=== PATIENT | female | born 1930 | race Caucasian/White ===

== ENCOUNTER 2019-01-23 16:06 | Emergency (ER) | payer MEDICARE ==
--- NOTE | 2019-01-23 16:12 | UC ---
Respiratory Complaint HPI - HPI Summary HPI Summary: 88yo resident of [facility], with one week of respiratory symptoms. Seen for a routine visit by on 01/19 and was given cephalexin for suspected pneumonia (Initial rx was for azithromycin, not given due to risk of med interactions. First dose given evening of 01/21.). Blood tinged sputum noted 3 days ago, daughter describes as dark in color, not bright red, mixed with spurum. No fever or observed shortness of breath. Has persistent right ear pain. History of atrial fibrillation and is on Xarelto for this. Normal appetite and activity have persisted aside from the disruption caused by coughing. her daughter is certain that bloody mucous is being expectorated rather than nasal in origin. 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 Onset/Duration: Gradual Onset, Lasting Days Timing: Intermittent Episodes Severity Initially: Mild Severity Currently: Moderate Character: Cough: Productive Aggravating Factors: Nothing Alleviating Factors: Nothing Associated Signs And Symptoms: Positive: Hemoptysis, URI, Nasal Congestion - Allergies/Home Medications Allergies/Adverse Reactions: Allergies Allergy/AdvReac Type Severity Reaction Status Date / Time tramadol Allergy Hallucinati Verified 01/23/19 16:27 ons Home Medications: Home Medications Cephalexin CAP* [Keflex 500 CAP*] 500 mg PO DAILY 01/23/19 [History Confirmed ] Sertraline HCl [Zoloft] 100 mg PO DAILY 01/23/19 [History Confirmed 01/23/19] PMH/Surg Hx/FS Hx/Imm Hx Cardiovascular History: Atrial Fibrillation GI/ History: Renal Disease - daughter believes that she has stage 3 CKD Neurological History: CVA - history of vascular dementia with stroke in 2015, Dementia Psychological History: Depression - Surgical History Surgical History: Yes Surgery Procedure, Year, and Place: cataract. colonoscopy, BENIGN LESION REMOVED FROM NECK - Family History Known Family History: Positive: Cardiac Disease - mother CHF, Other - Cancer father - Social History Occupation: Retired Lives: Assisted Living - [facility] Alcohol Use: None Substance Use Type: None Smoking Status (MU): Former Smoker - remote light smoking history Type: Cigarettes - Immunization History Most Recent Influenza Vaccination: 3828-0106 season Most Recent Tetanus Shot: UNKNOWN Most Recent Pneumonia Vaccination: 2012 and shingles vac Review of Systems All Other Systems Reviewed And Are Negative: Yes Constitutional: Positive: Negative Skin: Positive: Negative Eyes: Positive: Negative ENT: Positive: Ear Ache, Nasal Discharge Respiratory: Positive: Cough. Negative: Shortness Of Breath Cardiovascular: Positive: Other - has been in sinus rhythm since cardioversion approximately 2 years ago, remains on amiodorone.. Negative: Palpitations, Chest Pain Gastrointestinal: Positive: Negative Genitourinary: Positive: Other - history of CKD Motor: Positive: Negative Neurovascular: Positive: Negative Musculoskeletal: Positive: Negative Neurological: Positive: Other - memory impaired. Psychological: Positive: Depressed - depression treated with sertraline Is Patient Immunocompromised?: No Physical Exam Triage Information Reviewed: Yes Appearance: Ill-Appearing - Mildly unwell with congested cough Eyes: Positive: Conjunctiva Clear ENT: Positive: Pharynx normal, TMs normal Dental Exam: Normal Neck: Positive: Supple, Nontender, No Lymphadenopathy Respiratory: Positive: No respiratory distress, Crackles - bibasilar fine crackles. Cardiovascular: Positive: No Murmur, Bradycardia Abdomen Description: Positive: Nontender, No Organomegaly, Soft Bowel Sounds: Positive: Present Musculoskeletal Exam: Normal Neurological: Positive: Alert Psychological Exam: Other - Answers questions briefly, but without detail Skin Exam: Normal Diagnostics - Radiology abormal Radiology Interpretation Completed By: ED Physician, Radiologist Summary of Radiographic Findings: consolidation left upper lobe Respiratory Course/Dx - Course Course Of Treatment: stop cephalexin and change to cefdinir for treatment of pneumonia. - Differential Dx/Diagnosis Differential Diagnosis/HQI/PQRI: Bronchitis, CHF, Pulmonary Edema, Lower Resp Infection Provider Diagnosis: Left upper lobe pneumonia Discharge - Sign-Out/Discharge Documenting (check all that apply): Patient Departure All imaging exams completed and their final reports reviewed: Yes - Discharge Plan Condition: Stable Disposition: HOME Patient Education Materials: Community Acquired Pneumonia (ED) Referrals: Jordan MCKINNEY,[facility] Live [Medical Doctor] - Additional Instructions: Discontinue cephalexin. Begin Omnicef 6 ml = 300mg twice daily for 7 to 10 days; duration to be determined by . 10 doses have been dispensed, with one being given today. Next dose is to be morning of 01/24/19. HOLD xarelto until re-evaluated by , but I believe it can be safely resumed once the blood tinge in the sputum stops. Request that the prn of guiafenesin be given for cough suppression. - Billing Disposition and Condition Condition: STABLE Disposition: Home
[2019-01-23 16:27] VITALS: BP 155/68
[2019-01-23] MEDS ORDERED: Cefdinir 250mg/5 ml* 100 ml ORAL.SUSP PO ONE (17:40)
== END 2019-01-23 18:05 | disposition home or self-care (01) ==
LOC: UCCORT 16:06
DX: J18.1 Lobar pneumonia, unspecified organism (principal); I48.91 Unspecified atrial fibrillation; F32.9 Major depressive disorder, single episode, unspecified; N18.9 Chronic kidney disease, unspecified; I69.998 Other sequelae following unspecified cerebrovascular disease; Z79.01 Long term (current) use of anticoagulants; Z88.5 Allergy status to narcotic agent; Z87.891 Personal history of nicotine dependence; Z79.899 Other long term (current) drug therapy
CPT/HCPCS: 71046; 99212; G0463

== ENCOUNTER 2019-02-05 15:01 | Emergency (ER) | payer MEDICARE ==
--- OUTSIDE RECORDS SUMMARY | 2019-02-05 15:13 | XMS REPORT | Continuity of Care Document ---
:1930 External Reference #:[id number] Author Name Yossi Edwards M.D., FACC Address [address] [place] [address] Care Team Providers Name Role Phone Saloni Johnson MD Care Team Information Telephone Information Clerk Unavailable Saloni Johnson MD Primary Care Physician Unavailable Payers Date Identification Numbers Payment Provider Subscriber Policy Number: [id number] Medicare Silvia Tamayoco PayID: [id number] [address] [place] [address] Policy Number: [id number] [facility] Silvia I Belkisco PayID: [id number] [address] [place] [address] Advance Directives Description No Information Available Problems Date Description Provider Status Onset: 04/17/2017 Malaise and fatigue Yossi Edwards M.D., Active [facility] Onset: 04/26/2016 Paroxysmal atrial fibrillation Mili Manjarrez, Active MSN, [employer] Onset: 03/31/2015 Mitral valve disorder Mili Manjarrez, Active MSN, [employer] Onset: 03/31/2015 Obstructive sleep apnea syndrome Mili Manjarrez, Active MSN, [employer] Onset: 07/06/2014 Localized, primary osteoarthritis Syed Ortiz MD, FACS Active Onset: 03/30/2014 Generalized osteoarthritis of the Syed Ortiz MD, FACS Active hand Onset: 03/14/2015 Atrial fibrillation Saloni Johnson MD Active Onset: 04/23/2010 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 Onset: 04/23/2010 Mixed hyperlipidemia Saloni Johnson MD Active Onset: 04/23/2010 Benign essential hypertension Saloni Johnsno MD Active Onset: 04/23/2010 Extrinsic asthma without status Saloni Johnson MD Active asthmaticus Onset: 04/23/2010 Allergic rhinitis Saloni Johnson MD Active Onset: 04/23/2010 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 Onset: 04/23/2010 Heartburn Saloni Johnson MD Active Onset: 09/01/2014 Sleep apnea Saloni Johnson MD Active Family History Date Family Member(s) Observation Comments : (age 75 Years) Father due to Lung Cancer : (age 76 Years) Mother due to Congestive Heart Failure Social History Type Date Description Comments Sex Unknown Lives With Assisted Living Home Environment Lives In [place] Diet Healthy, Well Balanced Occupation Retired Work Status Retired ADL's/IADL's Independent with all ADL's Tobacco Use Start: Unknown Never Smoked Cigarettes ETOH Use Currently consumes alcohol socially Tobacco Use Start: Unknown End: Patient is a former smoker Unknown Recreational Drug Use Denies Drug Use Smoking Status Reviewed: 01/12/19 Patient is a former smoker Allergies, Adverse Reactions, Alerts Date Description Reaction Status Severity Comments 03/22/2014 Ultram Active Medications Medication Date Status Form Strength Qnty SIG Indications Ordering Provider Nystatin 01/30/20 Active Suspension 299835Gsi 60ml 4ML swish B37.0 Davidenko 19 t/ML and retain , Yossi for as long MNabila Jaquez, as possible FACC (several minutes) before swallowing 4 times a day for 7 days Xarelto 01/30/20 Active Tablets 15mg 90tab 1 by mouth I48.0 Davidenko 19 s every , Yossi evening Nabila Blanco, with food FACC Potassium 01/30/20 Active Tablets ER 20Meq 30tab 1 by mouth Davidenko Chloride Angelika 19 s daily , Yossi ER Nabila Blanco, FACC Amiodarone 05/29/20 Active Tablets 200mg 45tab 1/2 tab by I48.0 Manjarrez, HCL 16 s mouth every Mili day Kvng , MSN, [employer] Simvastatin 03/22/20 Active Tablets 5mg 90tab 1 po qd Cornelius, 14 s Sunday Owens, D.O. Omeprazole 03/22/[address] 20mg 30cap 1 po qod Ashli, 14 s Syeda Hollins.OGisele Multi-Vitamin 04/23/20 Active Tablets 1/2 po qd Jr Johnson MD Azelastine Active Solution 0.05% 1 drop Unknown HCL 00 twice a day both eyes Azelastine Active Solution 0.15% 1-2 sprays Unknown HCL 00 intranasal twice a day prn Tylenol 8 Active Tablets ER 650mg one by Unknown Hour 00 mouth every 6 hours as needed pain Sertraline Active Tablets 100mg 90tab 1 by mouth Unknown HCL 00 s every day Amiodarone 04/17/20 Hx Tablets 200mg 90tab 1 tablet po I48.0 Davidenko HCL 15 - s qd , Yossi 05/29/20 Nabila Blanco, 16 [facility] Xarelto 03/14/20 Hx Tablets 20mg 90tab take 1 I48.0 Davidenko 15 - s tablet by , Yossi 01/30/20 mouth daily Nabila Blanco, 19 [facility] Ventolin HFA 03/09/20 Hx Aerosol 108(90Bas 3unit 2 puffs Eddie Johnson e) s every 4 MD Saloni Unknown mcg/Act hours as needed Benzonatate 09/01/20 Hx Capsules 100mg 30cap 1 by mouth Jara, 14 - s three times Jose Daniel Mcbride a day as DO needed cough Fexofenadine 03/22/20 Hx Tablets 180mg 1 po qd Ashli, HCL 14 - Sunday Owens, Syeda.O. Amlodipine 03/22/20 Hx Tablets 2.5mg 30tab 1 po qd I10 Cornelius, Besylate 14 - s 05/29/20 Roamn, D.O. 16 Paroxetine 03/22/20 Hx Tablets 20mg 90tab 1/2 po qd Cornelius, HCL 14 - s Sunday Owens, D.O. Aspir-81 03/22/[address] 81mg 1 po qd Natalie Cornelius - Sunday Owens, Syeda.OGisele Tylenol 03/22/20 Hx Tablets 325mg prn Natalie Cornelius - Sunday OwensAshley. Azelastine 03/22/20 Hx Solution 0.05% Cornelius, HCL 14 - Sunday Unknown Ashley Owens. Meloxicam 03/22/20 Hx Tablets 15mg 30tab 1 by mouth Diana 14 - s every day Jose Daniel Hernandez MD, FACS Meloxicam Hx Tablets 7.5mg 90tab 1 by mouth Alex, 00 - s every day MD Saloni Unknown with food , then as needed Paroxetine Hx Tablets 20mg 1/2 tab po Unknown HCL 00 - daily 08/28/20 18 Zolpidem Hx Tablets 10mg 1/2 tab po Unknown Tartrate 00 - qhs prn 04/17/20 17 Zyrtec Hx Tablets 10mg 1 by mouth Unknown Allergy 00 - every day Unknown Medications Administered in Office Medication Date Status Form Strength Qnty SIG Indications Ordering Provider Aministration Of 07/15/ Administered Injection Jordan, Pneumo 2007 MD Isai Administration Administered Injection Jordan, Of Flu 2007 MD Isai Immunizations CPT Code Status Date Vaccine Lot # [id number] Given 07/15/2014 flu vaccination 00368 Given 08/13/2013 flu vaccination 31394 Given 08/02/2013 flu vaccination 51180 Given 08/17/2012 flu vaccination 70437 Given 08/24/2010 flu vaccination 72365 Given 02/22/2010 Zoster Vaccine Live Injection 37105 Given 08/24/2009 Pneumovax Injection 60455 Given 08/24/2009 Tdap injection 64568 Given 04/07/2009 Zoster Vaccine Live Injection 48831 Given 07/15/2008 Pneumovax Injection 30277 Given 04/05/2008 Tetnus Injection 68557 Given 09/09/2007 flu vaccination Vital Signs Date Vital Result Comment 01/29/2019 11:56am BP Systolic Sitting Left Arm 135 mmHg BP Diastolic Sitting Left Arm 65 mmHg Heart Rate 56 /min Respiratory Rate 18 /min Height 64 inches 5'4" Weight 136.00 lb BMI (Body Mass Index) 23.3 kg/m2 BSA (Body Surface Area) 1.66 m2 [place] body weight in kilograms 54 kg O2 % BldC Oximetry 94 % 01/12/2019 2:57pm BP Systolic 154 mmHg BP Diastolic 73 mmHg Body Temperature 98.7 F Heart Rate 59 /min Height 64 inches 5'4" Weight 138.00 lb BMI (Body Mass Index) 23.7 kg/m2 BSA (Body Surface Area) 1.67 m2 [place] body weight in kilograms 54 kg O2 % BldC Oximetry 95 % 11/09/2018 2:36pm BP Systolic 124 mmHg BP Diastolic 74 mmHg Heart Rate 64 /min Respiratory Rate 18 /min Height 62 inches 5'2" Weight 141.00 lb BMI (Body Mass Index) 25.8 kg/m2 BSA (Body Surface Area) 1.65 m2 [place] body weight in kilograms 50 kg O2 % BldC Oximetry 96 % 08/28/2018 2:11pm BP Systolic 144 mmHg BP Diastolic 71 mmHg Heart Rate 64 /min Height 63 inches 5'3" Weight 145.00 lb BMI (Body Mass Index) 25.7 kg/m2 BSA (Body Surface Area) 1.69 m2 [place] body weight in kilograms 52 kg O2 % BldC Oximetry 94 % 04/24/2018 11:16am BP Systolic Sitting Left Arm 124 mmHg BP Diastolic Sitting Left Arm 80 mmHg Heart Rate 53 /min Respiratory Rate 20 /min Height 60.25 inches 5'0.25" Weight 156.00 lb BMI (Body Mass Index) 30.2 kg/m2 BSA (Body Surface Area) 1.68 m2 [place] body weight in kilograms 46 kg O2 Saturation Level with Exercise 98 % 10/29/2017 11:01am BP Systolic Sitting Left Arm 135 mmHg BP Diastolic Sitting Left Arm 78 mmHg Heart Rate 58 /min Respiratory Rate 16 /min Height 60.25 inches 5'0.25" Weight 154.00 lb BMI (Body Mass Index) 29.8 kg/m2 BSA (Body Surface Area) 1.68 m2 [place] body weight in kilograms 46 kg 04/17/2017 1:25pm BP Systolic Sitting Right Arm 137 mmHg BP Diastolic Sitting Right Arm 67 mmHg Heart Rate 57 /min Respiratory Rate 24 /min Height 60.25 inches 5'0.25" Weight 157.00 lb BMI (Body Mass Index) 30.4 kg/m2 BSA (Body Surface Area) 1.69 m2 [place] body weight in kilograms 46 kg 10/09/2016 11:46am BP Systolic Sitting Left Arm 126 mmHg BP Diastolic Sitting Left Arm 70 mmHg Heart Rate 53 /min Height 60.25 inches 5'0.25" Weight 155.00 lb BMI (Body Mass Index) 30.0 kg/m2 BSA (Body Surface Area) 1.68 m2 05/29/2016 1:12pm BP Systolic Sitting Right Arm 122 mmHg BP Diastolic Sitting Right Arm 60 mmHg Heart Rate 51 /min Respiratory Rate 16 /min Height 60.25 inches 5'0.25" Weight 160.00 lb BMI (Body Mass Index) 31.0 kg/m2 BSA (Body Surface Area) 1.70 m2 04/26/2016 10:12am BP Systolic Sitting Right Arm 140 mmHg BP Diastolic Sitting Right Arm 78 mmHg Heart Rate 47 /min Respiratory Rate 16 /min Height 60.25 inches 5'0.25" Weight 159.00 lb BMI (Body Mass Index) 30.8 kg/m2 BSA (Body Surface Area) 1.70 m2 10/26/2015 10:01am BP Systolic Sitting Right Arm 122 mmHg BP Diastolic Sitting Right Arm 64 mmHg Heart Rate 56 /min Respiratory Rate 16 /min Height 60.25 inches 5'0.25" Weight 170.00 lb BMI (Body Mass Index) 32.9 kg/m2 BSA (Body Surface Area) 1.75 m2 2015 3:05pm BP Systolic Sitting Right Arm 130 mmHg BP Diastolic Sitting Right Arm 72 mmHg Heart Rate 61 /min Respiratory Rate 16 /min Height 60.25 inches 5'0.25" Weight 176.00 lb BMI (Body Mass Index) 34.1 kg/m2 BSA (Body Surface Area) 1.77 m2 05/01/2015 9:37am BP Systolic Sitting Right Arm 140 mmHg BP Diastolic Sitting Right Arm 78 mmHg Heart Rate 60 /min Respiratory Rate 16 /min Height 60.25 inches 5'0.25" Weight 177.00 lb BMI (Body Mass Index) 34.3 kg/m2 BSA (Body Surface Area) 1.78 m2 03/31/2015 2:07pm BP Systolic Sitting Right Arm 122 mmHg BP Diastolic Sitting Right Arm 82 mmHg Heart Rate 78 /min Respiratory Rate 18 /min Height 60.25 inches 5'0.25" Weight 180.00 lb BMI (Body Mass Index) 34.9 kg/m2 BSA (Body Surface Area) 1.79 m2 03/22/2015 11:38am BP Systolic 112 mmHg BP Diastolic 60 mmHg Heart Rate 64 /min Respiratory Rate 18 /min Height 60.25 inches Weight 178.00 lb BMI (Body Mass Index) 34.5 kg/m2 03/22/2014 2:15pm BP Systolic Sitting Left Arm 120 mmHg BP Diastolic Sitting Left Arm 70 mmHg Height 61 inches 5'1" Weight 187.00 lb BMI (Body Mass Index) 35.3 kg/m2 BSA (Body Surface Area) 1.84 m2 Results Test Date Facility Test Result H/L Range Note CBC 01/29/2019 [facility] White Blood 6.5 K/uL N 3.1-10.7 1 W/Automated [address] [place] [address] [phone] Red Blood Count 3.67 M/uL Low 3.90-5.40 Hemoglobin 11.4 gm/dL Low 11.6-15.8 Hematocrit 36.9 % N 36.0-46.1 Mean Cell Volume 100.5 fl High 80.9-99.0 Mean Corpuscular HGB 31.1 pg N 25.9-32.7 Mean Corpuscular HGB Conc 30.9 g/dL N 30.8-34.3 Platelet Count 256 K/uL N 155-360 Red Cell Distri Width SD 50.2 fl High 36-47 Red Cell Distri Width %CV 14.1 % N 11.7-14.4 Mean Platelet Volume 8.7 fL Low 8.9-12.4 Neut% 77.6 % High 40.4-72.8 Lymph % 11.7 % Low 20.0-42.0 Coke % 9.6 % N 4.3-13.2 Eo% 0.6 % N 0.0-6.6 Bas% 0.5 % N 0.0-1.1 Neut# 5.02 K/uL N 1.8-7.0 Lymph # 0.76 K/uL Low 1.0-4.0 Coke # 0.62 K/uL N 0.3-0.9 Eos # 0.04 K/uL N 0.0-0.5 Baso # 0.03 K/uL N 0.0-0.1 Comprehensive Metabolic 01/29/2019 [facility] Glucose 101 mg/dL N 74-[address] [place] [address] [phone] BUN 11 mg/dL N 7-18 Creatinine 0.8 mg/dL N 0.6-1.3 Glom Filtration Rate, Estimate >60 mL/min >60 If >60 mL/min >60 2 BUN/Creat 13.7 ratio Sodium 142 mmol/L N 136-145 Potassium 3.4 mmol/L Low 3.5-5.1 Chloride 108 mmol/L High 98-107 Carbon Dioxide 32 mmol/L N 21-32 Anion Gap 2 mEq/L Low 8-16 Calcium 8.5 mg/dL N 8.5-10.1 Total Protein 7.3 g/dL N 6.4-8.2 Albumin 3.7 g/dL N 3.4-5.0 Globulin 3.6 g/dL N 1.9-4.3 Alb/Glob 1.0 ratio Bilirubin,Total 0.3 mg/dL N 0.2-1.0 Sgot/Ast 22 U/L N 15-37 SGPT/Alt 24 U/L N 12-78 Alkaline Phosphatase 97 U/L N 45-117 Laboratory test 08/26/2017 [facility] Ammonia 35 ?mol /L N 16-53 finding [phone] Laboratory test 08/26/2017 [facility] Lactic Acid 0.8 mmol/L N 0.5-2.0 3 finding [phone] Laboratory test 08/26/2017 [facility] Blood Culture SEE RESULT 4 finding [phone] BELOW CBS W/Automated 04/17/2017 [facility] White Blood 4.6 K/uL N 3.1-10.[address] Count [place], [place] [id number] [phone] Red Blood Count 3.92 M/uL N 3.90-5.40 Hemoglobin 13.1 gm/dL N 11.6-15.8 Hematocrit 39.0 % N 36.0-46.1 Mean Cell Volume 99.5 fl High 80.9-99.0 Mean Corpuscular HGB 33.4 pg High 25.9-32.7 Mean Corpuscular HGB Conc 33.6 g/dL N 30.8-34.3 Platelet Count 224 K/uL N 150-400 Red Cell Distri Width SD 50.5 fl High 3-47 Red Cell Distri Width %CV 13.8 % N 11.7-14.4 Mean Platelet Volume 9.3 fL N 8.9-12.4 Neut% 67.7 % N 40.4-72.8 Lymph % 19.3 % Low 20.0-42.0 Coke % 11.7 % N 4.3-13.2 Eo% 0.9 % N 0.0-6.6 Bas% 0.4 % N 0.0-1.1 Neut# 3.13 K/uL N 1.8-7.0 Lymph # 0.89 K/uL Low 1.0-4.0 Coke # 0.54 K/uL N 0.3-0.9 Eos # 0.04 K/uL N 0.0-0.5 Baso # 0.02 K/uL N 0.0-0.1 Laboratory test 04/17/2017 [facility] Thyroid Stim 1.58 uIU/mL N 0.30-4.20 finding [address] [place], [place] [address] [phone] Comprehensive 04/17/2017 [facility] Glucose 81 mg/dL N 74-106 Metabolic Panel [address] [place] [address] [phone] BUN 22 mg/dL High 7-18 Creatinine 0.9 mg/dL N 0.6-1.3 Glom Filtration Rate, Estimate >60 mL/min >60 If >60 mL/min >60 5 BUN/Creat 24.4 ratio Sodium 144 mmol/L N 136-145 Potassium 4.2 mmol/L N 3.5-5.1 Chloride 108 mmol/L High 98-107 Carbon Dioxide 32 mmol/L N 21-32 Anion Gap 4 mEq/L Low 8-16 Calcium 8.5 mg/dL N 8.5-10.1 Total Protein 7.1 g/dL N 6.4-8.2 Albumin 3.7 g/dL N 3.4-5.0 Globulin 3.4 g/dL N 1.9-4.3 Alb/Glob 1.1 ratio Bilirubin,Total 0.4 mg/dL N 0.2-1.0 Sgot/Ast 25 U/L N 15-37 SGPT/Alt 22 U/L N 12-78 Alkaline Phosphatase 86 U/L N 45-117 Lipid Panel 04/26/2016 [facility] Cholesterol Total <pending> Cholesterol/HDL Ratio <pending> High Density Lipoprotein <pending> LDL/HDL Risk Ratio <pending> LDL Low Density Lipoprotein <pending> Triglycerides <pending> Protime 03/10/2015 N2N/CCD Import Inr 1.0 0.9-1.1 6 Protime <pending> Protime 13.6 s 12.0-14.4 CBC W/Automated Diff 03/10/2015 N2N/CCD Import Bas% 0.5 % 0.0-1.1 Baso # 0.03 K/uL 0.0-0.1 Eo% 2.9 % 0.0-6.6 Eos # 0.16 K/uL 0.0-0.5 Hematocrit 43.7 % 36.0-46.1 Hemoglobin 14.3 gm/dL 11.6-15.8 Lymph # 1.30 K/uL Low 1.8-7.0 Lymph % 23.4 % 17.0-46.1 Mean Cell Volume 101.2 fl High 80.9-99.0 Mean Corpuscular HGB 33.1 pg High 25.9-32.7 Mean Corpuscular HGB Conc 32.7 g/dL 30.8-34.3 Mean Platelet Volume 9.7 fL 8.9-12.4 Coke # 0.76 K/uL 0.3-0.9 Coke % 13.7 % High 4.3-13.2 Neut# 3.31 K/uL 1.0-7.0 Neut% 59.5 % 40.4-72.8 Platelet Count 214 K/uL 155-360 Red Blood Count 4.32 M/uL 3.90-5.40 Red Cell Distri Width %CV 13.8 % 11.7-14.4 Red Cell Distri Width SD 50.2 fl High 3-47 White Blood Count 5.6 K/uL 3.1-10.7 Laboratory test 03/10/2015 N2N/CCD Import Act Partial 28.7 s 23.4-35.0 7 finding Thrombo Time Alb/Glob 1.2 ratio Albumin 4.1 g/dL 3.4-5.0 Alkaline Phosphatase 78 U/L 45-117 Anion Gap 6 mEq/L Low 8-16 BUN 19 mg/dL High 7-18 BUN/Creat 21.1 ratio Bilirubin,Total 0.5 mg/dL 0.2-1.0 C-Reactive Protein,Quant 3.0 mg/L <3.0 8 CK 145 U/L 26-192 Calcium 9.2 mg/dL 8.5-10.1 Carbon Dioxide 30 mmol/L 21-32 Chloride 107 mmol/L 98-107 Comprehensive Metabolic Panel <pending> Creatinine 0.9 mg/dL 0.6-1.3 Globulin 3.4 g/dL 1.9-4.3 Glom Filtration Rate, Estimate >60 mL/min >60 Glucose 116 mg/dL High 74-106 If >60 mL/min >60 9 Potassium 4.2 mmol/L 3.5-5.1 SGPT/Alt 20 U/L 12-78 Sedimentation Rate 10 mm/hr 0-30 Sgot/Ast 23 U/L 15-37 Sodium 143 mmol/L 136-145 Total Protein 7.5 g/dL 6.4-8.2 Troponin-I < 0.015 ng/mL 10 Urine Screen 03/10/2015 N2N/CCD Import Urine Bilirubin - Negative Negative Dipstick Urine Blood Negative Negative Urine Clarity Clear Clear Urine Color Straw Yellow Urine Glucose - Dipstick Negative mg/dL Negative Urine Ketone Negative mg/dL Negative Urine Leuk Esterase Negative Negative Urine Nitrite - Dipstick Negative Negative Urine PH 7.0 6.5-7.5 Urine Protein - Dipstick Negative mg/dL Negative Urine Screen <pending> Urine Specific Raphine 1.010 1.010-1.030 Urine Urobilinogen - Dipstick 0.2 E.U./dL 0.2-1.0 1 I48.0 2 Note: Persistent reduction for 3 months or more in an eGFR <60 mL/min/1.73 m2 defines CKD. Patients with eGFR values >/=60 mL/min/1.73 m2 may also have CKD if evidence of persistent proteinuria is present. The original MDRD equation for estimated GFR is not valid for patients less than 18 years of age. Additional information may be found at www.kdoqi.org. 3 [facility] Severe Sepsis and Septic Shock Management Bundle Measure requires all lactic acids initially measuring >2.0 mmol/L be repeated. 4 SEE RESULT BELOW Name: SILVIA LOVE I : [address]: Ben Jean Baptiste MD Acct: [id number] Unit: [id number] AGE: 87 Location: ED Re08/26/17 SEX: F Status: DEP ER SPEC: [id number] RU: 08/26/[address] [facility] [address]: Ben Jean Baptiste MD REQ: [id number] RECD: 08/26/17 STATUS: BRAULIO FRIED DR: Isai Ortega MD _ SOURCE: BLOOD,VENO SPDESC: ORDERED: Blood Cult Procedure Result Reported Site Aerobic Culture Bottle Final 08/31/17- 1604 ML No Growth Day 5 Anaerobic Culture Bottle Final 08/31/17- 1604 ML No Growth Day 5 * ML - MAIN LAB ([id number]) . END OF REPORT * ML=Testing performed at Main Lab DEPARTMENT OF PATHOLOGY, [address] [place] [address] Lisandro Dumont M.D. Director [facility] # [id number] 5 Note: Persistent reduction for 3 months or more in an eGFR <60 mL/min/1.73 m2 defines CKD. Patients with eGFR values >/=60 mL/min/1.73 m2 may also have CKD if evidence of persistent proteinuria is present. The original MDRD equation for estimated GFR is not valid for patients less than 18 years of age. Additional information may be found at www.kdoqi.org. 6 THERAPEUTIC INR RANGE: 2.0 - 3.0 DVT, Pulmonary embolus, prophylaxis against venous thrombosis or systemic embolization in high risk patients. 2.5 - 3.5 Mechanical heart valves 7 Is patient on anticoagulants? Coumadin QUERY: Anticoagulant Therapy? QUERY: Date of Last Dose: QUERY: Time of Last Dose: 8 ADDED TO C168 9 Note: Persistent reduction for 3 months or more in an eGFR <60 mL/min/1.73 m2 defines CKD. Patients with eGFR values >/=60 mL/min/1.73 m2 may also have CKD if evidence of persistent proteinuria is present. The original MDRD equation for estimated GFR is not valid for patients less than 18 years of age. Additional information may be found at www.kdoqi.org. 10 0.0 - 0.045 ng/mL: Normal 0.046 - 0.5 ng/mL: Suggestive 0.6 - 1.5 ng/mL: Consistent Procedures Date Code Description Status 01/12/2019 76164 Debridement Nails Any Method 1-5 Completed 01/12/2019 41044 Trim Nondystrophic Nails Completed 11/09/2018 01927 Debridement Nails Any Method 1-5 Completed 11/09/2018 81537 Trim Nondystrophic Nails Completed 08/28/2018 32526 Debridement Nails Any Method 1-5 Completed 08/28/2018 37209 Trim Nondystrophic Nails Completed 08/28/2018 87801 Pare Hyperkeratotic Lesion, Single Completed 04/24/2018 54250 EKG-Tracing And Report Completed 10/20/2017 30803 Echocardiogram Complete Completed 04/17/2017 41863 EKG-Tracing And Report Completed 10/09/2016 28609 EKG-Tracing And Report Completed 05/29/2016 45658 EKG-Tracing And Report Completed 04/26/2016 97046 EKG-Tracing And Report Completed 10/26/2015 02806 EKG-Tracing And Report Completed 2015 84216 EKG-Tracing And Report Completed 05/01/2015 71485 EKG-Tracing And Report Completed 04/17/2015 02933 Doppler ECHO Color Flow Mapping Completed 04/17/2015 11272 Doppler Echocardiogram Complete Completed 04/17/2015 64709 Transesophageal Echocardiogram Completed 04/17/2015 32739 EKG Interpretation And Report Only Completed 04/17/2015 16913 Cardioversion External Completed 03/31/2015 99047 EKG-Tracing And Report Completed 03/31/2015 53698 EKG-Tracing And Report Completed 03/20/2015 88602 Echocardiogram Complete Completed 07/06/2014 56256 Radiology, Knee 3 Views Completed 03/30/2014 21720 Radiology, Hand: Minimum Three Views Completed 09/06/2010 59068 Anesthesia, Nose & Accessory Sinus Surgery Not Otherwise Completed Spec Encounters Type Date Location Provider Dx Diagnosis Office Visit 01/29/2019 Cardiology Office Rosendo Steen I48.0 Paroxysmal atrial 11:40a B., PA fibrillation I10 Essential (primary) hypertension I34.0 Nonrheumatic mitral (valve) insufficiency B37.0 Candidal stomatitis Office Visit 04/24/2018 Cardiology Yossi Edwards I48.0 Paroxysmal atrial 11:20a Office Nabila Blanco, FACC fibrillation I10 Essential (primary) hypertension I34.0 Nonrheumatic mitral (valve) insufficiency Office Visit 10/29/2017 Cardiology Mili Manjarrez I48.0 Paroxysmal atrial 11:00a Office RADHA Calderon, fibrillation [employer] I10 Essential (primary) hypertension I34.0 Nonrheumatic mitral (valve) insufficiency G47.33 Obstructive sleep apnea (adult) (pediatric) Office Visit 04/17/2017 Cardiology Yossi Edwards I48.0 Paroxysmal atrial 1:20p Office Nabila Blanco, [facility] fibrillation I10 Essential (primary) hypertension R53.83 Other fatigue I34.0 Nonrheumatic mitral (valve) insufficiency Office Visit 10/09/2016 Cardiology Mili Manjarrez I48.0 Paroxysmal atrial 11:40a Office RADHA Calderon, fibrillation [employer] I10 Essential (primary) hypertension I34.0 Nonrheumatic mitral (valve) insufficiency G47.33 Obstructive sleep apnea (adult) (pediatric) Office Visit 05/29/2016 Cardiology Mili Manjarrez I48.0 Paroxysmal atrial 1:00p Office RADHA Calderon, fibrillation [employer] I10 Essential (primary) hypertension I34.0 Nonrheumatic mitral (valve) insufficiency Office Visit 04/26/2016 Cardiology Mili Manjarrez I48.0 Paroxysmal atrial 10:00a Office RADHA Calderon, fibrillation [employer] I10 Essential (primary) hypertension I34.0 Nonrheumatic mitral (valve) insufficiency Office Visit 10/26/2015 Cardiology Yossi Edwards I48.0 Paroxysmal atrial 9:50a Office Nabila Blanco, [facility] fibrillation Office Visit 2015 Cardiology Mili Manjarrez 427.31 Atrial 3:00p Office RADHA Calderon, Fibrillation [employer] 401.1 Hypertension Benign 424.0 Mitral Valve Disorder Office Visit 05/01/2015 Cardiology Yossi Edwards 427.31 Atrial 9:30a Office Nabila Blanco, [facility] Fibrillation 401.1 Hypertension Benign 424.0 Mitral Valve Disorder Office Visit 03/31/2015 Cardiology Mili Manjarrez 427.31 Atrial 2:00p Office RADHA Calderon, Fibrillation [employer] 401.1 Hypertension Benign 327.23 Obstructive Sleep Apnea Adult & Pediatric 424.0 Mitral Valve Disorder Office Visit 08/17/2014 Syed Nobles 715.16 Osteoarthrosis 10:15a Office MD Mac FACS Localized Prim Lower Leg Office Visit 07/06/2014 Orthopaedic Syed Ortiz 719.46 Pain Joint Lower 11:30a Office F., MD, FACS Leg 715.16 Osteoarthrosis Localized Prim Lower Leg Office Visit 03/30/2014 10:30a Orthopaedic Office Syed Ortiz 727.03 Trigger Finger MD Bubba, FACS Acquired 715.04 Osteoarthrosis Generalized Hand Office Visit 03/22/2014 2:15p Orthopaedic Office CorneliusSunday 727.03 Trigger Finger Syeda., D.O. 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 As her CrCl is calculated at 46 ml/min, will reduce Xarelto to 15mg daily.I10 Essential ( primary) hypertensionComments:Monitor.I34.0 Nonrheumatic mitral (valve) insufficiencyComments:No changes.B37.0 Candidal stomatitisNew Medication: Nystatin 396113 Unit/ML - 4ML swish and retain for as long as possible (several minutes) before swallowing 4 times a day for 7 daysComments:She will use nystatin swish and swallow for 1 week. Advised to call PCP if symptoms persist past treatment course.AllFollow up:2 months
--- OUTSIDE RECORDS SUMMARY | 2019-02-05 15:13 | XMS REPORT | Continuity of Care Document ---
:1930 External Reference #:[id number] Author Name Saloni Johnson MD Address [address] [place] [address] Care Team Providers Name Role Phone Saloni Johnsno MD Primary Care Physician Unavailable Payers Date Identification Numbers Payment Provider Subscriber Effective: 1997 Policy Number: [id number] Medicare Silvia Mihaela Olivera PayID: [id number] [address] [place] [address] Policy Number: [id number] [facility] Healthcare Options Silviaclovis Olivera PayID: [id number] [address] [place] [address] Advance Directives Description No Information Available Problems Date Description Provider Status Onset: 04/23/2010 Heartburn Saloni Johnson MD Active Onset: 04/23/2010 Moderate recurrent major depression Saloin Johnson MD Active Onset: 04/23/2010 Allergic rhinitis Saloni Johnson MD Active Onset: 04/23/2010 Mixed hyperlipidemia Saloni Johnson MD Active Onset: 03/14/2015 Atrial fibrillation Saloni Johnson MD Active Onset: 08/17/2015 Essential hypertension Saloni Johnson MD Active Onset: 08/17/2015 Polyosteoarthritis, unspecified Saloni Johnson MD Active Onset: 02/01/2016 Mild intermittent asthma Saloni Johnson MD Active Onset: 02/01/2016 Abnormal gait Saloni Johnson MD Active Onset: 02/01/2016 Multi-infarct dementia, uncomplicated Saloni Johnson MD Active Onset: 04/18/2016 Sleep apnea Saloni Johnson MD Active Onset: 04/18/2016 Peripheral venous insufficiency Saloni Johnson MD Active Onset: 10/10/2017 Mild intermittent asthma Saloni Johnson MD Active Onset: 04/17/2018 Chronic kidney disease stage 3 Saloni Johnson MD Active Onset: 01/26/2019 Atherosclerosis of aorta Saloni Johnson MD Active Onset: 04/23/2010 Insomnia Saloni Johnson MD Resolved Resolved: 03/09/2015 Onset: 04/23/2010 Sciatica Saloni Johnson MD Resolved Resolved: 03/09/2015 Family History Date Family Member(s) Observation Comments : (age 75 Years) Father due to Cancer, Lung : (age 76 Years) Mother due to CHF Social History Type Date Description Comments Sex Unknown Marital Status Lives With Daughter Halie Smoke-Free Home is smoke-free Occupation Retired Customer Service at [employer]. Tobacco Use Start: Unknown End: Former Cigarette Smoker Unknown ETOH Use Rarely consumes alcohol Tobacco Use Start: Unknown End: Patient is a former smoker Unknown Smoking Status Reviewed: 01/26/19 Patient is a former smoker Allergies, Adverse Reactions, Alerts Date Description Reaction Status Severity Comments 04/23/2010 Ultram Hallucinations Active 08/17/2015 Steroids Active Medications Medication Date Status Form Strength Qnty SIG Indications Ordering Provider Memantine HCL Active Tablets 5mg 68tabs 1 po daily R41.82 Uche Johnson x 1 week, MD Saloni then 1 po twice daily x 1 week, then 2 po every am and 1 po every pm x 1 week, then 2 po bid Cetirizine Active Tablets 10mg 30tabs 1 by mouth J30.9 VINCENT Johnson 019 every day MD Saloni Tylenol 8 Active Tablets ER 650mg 1 po twice M15.9 Daniel Johnson 019 daily as MD Saloni Arthritis needed Pain arthritis pain Sertraline Active Tablets 100mg 30tabs 1 by mouth F33.1 VINCENT Johnson 018 every day MD Saloni F41.1 Nystatin 12/13/2016 Active Cream 830711Kyfx/GM 15gm apply to B37.2 Alex rash on MD Saloni abdomen 2 times daily until resolved as needed Azelastine HCL 08/17/2015 Active Solution 0.05% 18ml 1 drop to J30.9 Alex, (Ophthalmic) affected MD Saloni eye twice a day as needed Simvastatin 04/21/2012 Active Tablets 5mg 90tab 1qd - take E78.2 kami Johnson one tablet MD Saloni by mouth every day Multi-Vitamin 04/23/2010 Active Tablets 1 po qd Saloni Johnson MD Xarelto Active Tablets 20mg 1 by mouth Davidenko daily-- On , Yossi Hold Azelastine HCL Active Solution 0.1% use 2 [facility] (Nasal) sprays in Speech each Therapy nostril twice a day Amiodarone HCL Active Tablets 200mg TK 1/2 T Unknown PO qd Omeprazole Active Capsules 20mg 30cap take [address] Alex s capsule by MD Saloni mouth every other day before breakfast Cefdinir Active Capsules 300mg 1 by mouth Unknown twice a day for ten days Cephalexin 01/21/2019 Hx Capsules 500mg 30cap 1 by mouth J18.9 Arthur Johnson three MD Saloni 01/25/2019 times a day x 10 days Azithromycin 01/19/2019 Hx Tablets 250mg 6tabs 2 by mouth J18.9 Arthur Johnson, MD Saloni 01/21/2019 then 1 by mouth daily x 4 more days Donepezil HCL 10/19/2018 Hx Tablets 5mg 90tab take one F01.50 Arthur Johnson tablet by MD Saloni 12/03/2018 mouth at bedtime Sertraline HCL 04/17/2018 Hx Tablets 25mg 90tab 3 by mouth F33.1 Digiovann - s daily. a, 07/20/2018 JessicaANASTASIA vick Cholestyramine 08/25/2017 Hx Powder 4GM/Dose 378gm 4 grams is R19.7 Arthur Johnson MD 04/17/2018 daily. Sulfamethoxazo 08/25/2017 Hx Tablets 800-160mg 10tab 1 by mouth R30.0 edita Johnson/Trimethopri - s twice MD Saloni m DS 09/05/2017 daily x 5 days Zyrtec Allergy 04/21/2017 Hx Tablets 10mg 30tab 1 by mouth J30.9 Arthur Johnson every day MD Saloni 01/15/2019 Nystatin-Triam 12/13/2016 Hx Cream 315124-7.1Unit 15gm apply to B37.2 radha Johnson - /GM-% rash on MD Saloni 12/13/2016 abdomen everyday until resolved, then prn Donepezil HCL 02/01/2016 Hx Tablets 5mg 30tab 1 po q hs F01.50 Arthur Johnson MD 04/18/2016 Ventolin HFA 03/09/2015 Hx Aerosol 108(90Base) 3unit 2 puffs J45.20 Arthur Johnson mcg/Act s every 4 MD Saloni 12/03/2018 hours as needed Ventolin HFA 09/01/2014 Hx Aerosol 108mcg/Act 3unit 2 puffs Arthur Johnson every 4 MD Saloni 03/09/2015 hours as needed for cough or sob Benzonatate 09/01/2014 Hx Capsules 100mg 30cap 1 by mouth Arthur Jara, 04/18/2016 times a DO day as needed cough Aspirin Adult 04/23/2010 Hx Chewtabs 81mg 1 by mouth Alex Low Strength - every day MD Saloni 03/22/2015 Acetaminophen 04/23/2010 Hx Tablets 325mg 2 tablets M15.0 Arthur Johnson by mouth MD Saloni 12/03/2018 in the morning Meloxicam Hx Tablets 7.5mg 90tab 1 by mouth Arthur Johnson every day MD Saloni 08/17/2015 with food , then as needed Azelastine HCL Hx Solution 0.05% 6ml 1 drop to Alex - affected MD Saloni 08/17/2015 eye twice a day as needed Amlodipine Hx Tablets 2.5mg 90tab 1 by mouth Alex Besylate - s every day MD Saloni 08/15/2016 or 1/ if bp is low Fexofenadine Hx Tablets 180mg 90tab 1 by mouth VINCENT Johnson - kami every day MD Saloni 12/13/2016 as needed Amiodarone HCL Hx Tablets 200mg 1 by mouth Grace - every day , Yossi 08/15/2016 Paroxetine HCL Hx Tablets 20mg 90tab 1/2 by Arthur Johnson MD 04/17/2018 twice a day Tylenol PM Hx Tablets 500-25mg 1 every Unknown Extra Strength - night at 12/28/2018 bedtime as needed Medications Administered in Office Medication Date Status Form Strength Qnty SIG Indications Ordering Provider PPD Administered Injection Schedule, 9 Nurses Immunizations CPT Code Status Date Vaccine Reaction Lot # [id number] Given 09/25/2018 Flu Vaccine NOS 66282 Given 08/22/2017 Influenza Vaccine, Inactivated, Subunit, [place] [address] Given 08/28/2016 Fluzone Highdose Age 65 And Over Preservative & Antibiotic Free 79789 Given 08/17/2015 Prevnar 13 Pneumococal Im inj completed, Pt [id number] Conjugate Vaccine tolerated well 43324 Given 08/12/2015 Fluzone Highdose Age 65 And Over Preservative & Antibiotic Free 12646 Given 07/15/2014 Afluria Or Fluvirin Flu Vac Intramuscular 37772 Given 08/13/2013 Afluria Or Fluvirin Flu Vac Intramuscular 48644 Given 08/02/2013 Afluria Or Fluvirin Flu Vac Intramuscular 53282 Given 08/17/2012 Afluria Or Fluvirin Flu Vac Intramuscular 65722 Given 08/24/2010 Afluria Or Fluvirin Flu Vac Intramuscular 94981 Given 02/22/2010 Zoster (Zostavax) 49189 Given 08/24/2009 Pneumococcal 23 Immunization Adult Or Immunosuppressed Patient 11193 Given 08/24/2009 Tdap (Adacel) Ages 7 And Above Only 97473 Refused 10/19/2018 Shingrix (Shingles) Zoster Vaccine HZV, Recombinant , Subunit, Adj [id number] Refused 07/20/2018 Afluria Or Fluvirin Flu Vac Intramuscular Vital Signs Date Vital Result Comment 01/26/2019 11:31am Body Temperature 98.8 F Weight 133.25 lb Heart Rate 65 /min BP Systolic 128 mmHg BP Diastolic 78 mmHg Respiratory Rate 18 /min Height 60.25 inches 5'0.25" O2 % BldC Oximetry 97 % Ra BMI (Body Mass Index) 25.8 kg/m2 01/19/2019 4:26pm Weight 141.00 lb Heart Rate 78 /min BP Systolic 124 mmHg BP Diastolic 72 mmHg Respiratory Rate 18 /min Height 60.25 inches 5'0.25" O2 % BldC Oximetry 97 % Ra BMI (Body Mass Index) 27.3 kg/m2 10/19/2018 11:05am Weight 140.00 lb Heart Rate 56 /min BP Systolic 126 mmHg BP Diastolic 76 mmHg Respiratory Rate 16 /min Height 60.25 inches 5'0.25" O2 % BldC Oximetry 95 % Ra BMI (Body Mass Index) 27.1 kg/m2 07/20/2018 11:18am Weight 147.00 lb Heart Rate 60 /min BP Systolic 128 mmHg BP Diastolic 70 mmHg Respiratory Rate 16 /min Height 60.25 inches 5'0.25" 04/17/18 BMI (Body Mass Index) 28.5 kg/m2 06/30/2018 11:34am Weight 147.00 lb Heart Rate 76 /min BP Systolic 110 mmHg BP Diastolic 64 mmHg Respiratory Rate 16 /min Height 60.25 inches 5'0.25" 04/17/18 BMI (Body Mass Index) 28.5 kg/m2 04/17/2018 10:59am Weight 156.00 lb Heart Rate 76 /min BP Systolic 120 mmHg BP Diastolic 78 mmHg Respiratory Rate 18 /min Height 60.25 inches 5'0.25" 04/17/18 BMI (Body Mass Index) 30.2 kg/m2 10/10/2017 10:04am Weight 154.00 lb Heart Rate 74 /min BP Systolic 112 mmHg BP Diastolic 70 mmHg Respiratory Rate 18 /min Height 60.25 inches 5'0.25" 04/21/17 BMI (Body Mass Index) 29.8 kg/m2 08/29/2017 1:22pm Weight 153.00 lb Heart Rate 72 /min BP Systolic 132 mmHg BP Diastolic 70 mmHg Respiratory Rate 18 /min Height 60.25 inches 5'0.25" 04/21/17 BMI (Body Mass Index) 29.6 kg/m2 08/25/2017 10:21am Body Temperature 98.0 F Weight 153.00 lb Heart Rate 76 /min BP Systolic 122 mmHg BP Diastolic 68 mmHg Respiratory Rate 18 /min Height 60.25 inches 5'0.25" 04/21/17 BMI (Body Mass Index) 29.6 kg/m2 04/21/2017 10:05am Weight 157.00 lb Heart Rate 74 /min BP Systolic 122 mmHg BP Diastolic 64 mmHg Respiratory Rate 18 /min Height 60.25 inches 5'0.25" 04/21/17 BMI (Body Mass Index) 30.4 kg/m2 12/13/2016 10:17am Weight 158.00 lb Heart Rate 60 /min BP Systolic 138 mmHg BP Diastolic 78 mmHg Respiratory Rate 18 /min Height 60.25 inches 5'0.25" 08/15/16 BMI (Body Mass Index) 30.6 kg/m2 08/15/2016 9:42am Weight 156.00 lb Heart Rate 68 /min BP Systolic 140 mmHg BP Diastolic 70 mmHg BP Systolic Recheck 138 mmHg BP Diastolic Recheck 64 mmHg Respiratory Rate 18 /min Height 60.25 inches 5'0.25" 08/15/16 BMI (Body Mass Index) 30.2 kg/m2 04/18/2016 8:57am Weight 157.00 lb Heart Rate 60 /min BP Systolic 130 mmHg BP Diastolic 78 mmHg Respiratory Rate 18 /min Height 60.25 inches 5'0.25" BMI (Body Mass Index) 30.4 kg/m2 02/01/2016 9:09am Weight 166.00 lb Heart Rate 76 /min BP Systolic 124 mmHg BP Diastolic 70 mmHg Respiratory Rate 18 /min Height 60.25 inches 5'0.25" BMI (Body Mass Index) 32.1 kg/m2 08/17/2015 9:13am Weight 173.00 lb Heart Rate 72 /min BP Systolic 118 mmHg BP Diastolic 62 mmHg Respiratory Rate 18 /min Height 60.25 inches 5'0.25" BMI (Body Mass Index) 33.5 kg/m2 03/22/2015 11:38am Weight 178.00 lb Heart Rate 64 /min BP Systolic 112 mmHg BP Diastolic 60 mmHg Respiratory Rate 18 /min Height 60.25 inches 5'0.25" BMI (Body Mass Index) 34.5 kg/m2 03/09/2015 9:30am Weight 178.00 lb Heart Rate 76 /min BP Systolic 122 mmHg BP Diastolic 70 mmHg Respiratory Rate 18 /min Height 60.25 inches 5'0.25" BMI (Body Mass Index) 34.5 kg/m2 09/01/2014 8:57am Weight 176.00 lb Heart Rate 72 /min BP Systolic 128 mmHg BP Diastolic 68 mmHg Respiratory Rate 24 /min Height 60.25 inches 5'0.25" 08/17/2014 1:02pm Body Temperature 100.1 F Weight 182.00 lb Heart Rate 88 /min BP Systolic 130 mmHg BP Diastolic 78 mmHg Respiratory Rate 18 /min Height 60.75 inches 5'0.75" (Done On 04/12/13) O2 % BldC Oximetry 95 % 03/10/2014 9:13am Weight 182.00 lb Heart Rate 68 /min BP Systolic 110 mmHg BP Diastolic 70 mmHg Respiratory Rate 18 /min Height 60.75 inches 5'0.75" (Done On 04/12/13) Results Test Date Facility Test Result H/L Range Note Laboratory test finding 01/26/2019 [facility] Urine Culture <pending> Lipid Treatment 10/13/2018 [facility] Cholesterol 187 mg/dL 50-199 1 Triglycerides 164 mg/dL 30-200 HDL 53 mg/dL 35-85 2 Chol/ HDL Ratio 3.6 ratio Low 3.7-5.6 VLDL 33 mg/dL High 2-29 LDL (Calc) 102 mg/dL High 20-99 3 Alt 11 U/L 3-42 Ast 20 U/L 8-42 CBC With Auto Diff 10/13/2018 [facility] WBC 4.9 K/uL 4.1-11.0 RBC 4.07 M/uL 4.00-5.40 Hemoglobin 13.3 gm/dL 12.0-16.0 Hematocrit 39.9 % 36.0-47.0 MCV 97.9 fL High 80.0-97.0 MCH 32.7 pg High 27.0-32.0 MCHC 33.4 g/dL 32.0-36.0 RDW 13.7 % 11.5-14.5 PLT Count 209 K/ul 140-400 MPV 7.6 FL 7.1-10.7 Neutrophil 74.1 % 35.0-75.0 Lymphocyte 13.9 % Low 16.0-52.0 Monocyte 10.0 % 2.0-10.0 Eosinophil 1.1 % 0.0-5.0 Basophil 0.9 % 0.0-4.0 Abs Neutrophils 3.6 K/uL 2.1-8.0 Abs Lymphocytes 0.7 K/uL Low 0.8-5.5 Abs Monocytes 0.5 K/uL 0.1-1.0 Abs Eosinophils 0.1 K/uL 0.0-0.5 Abs Basophils 0.0 K/uL 0.0-0.3 Laboratory test finding 10/13/2018 [facility] TSH 2.85 uIU/mL 0.35-4.94 Basic (BMP) 10/13/2018 [facility] Sodium 146 mmol/L 135-146 4 Potassium 3.8 mmol/L 3.5-5.2 Chloride# 107 mmol/L 97-110 5 Carbon Dioxide 28 mmol/L 24-34 Glucose 92 mg/dL 70-105 BUN 24 mg/dL 6-26 Creatinine 0.9 mg/dL 0.5-1.4 Calcium 9.3 mg/dL 8.5-10.2 Non Nilda Egfr 56 Low >60 6 Nilda Egfr >60 >60 7 Anion Gap 11 mmol/L 5-15 8 Lipid Treatment 04/10/2018 [facility] Cholesterol 198 mg/dL 50-199 9 Triglycerides 133 mg/dL 30-200 HDL 63 mg/dL 35-85 10 Chol/ HDL Ratio 3.1 ratio Low 3.7-5.6 VLDL 27 mg/dL 2-29 LDL (Calc) 109 mg/dL High 20-99 11 Alt 12 U/L 3-42 Ast 18 U/L 8-42 CBC With Auto Diff 04/10/2018 [facility] WBC 4.4 K/uL 4.1-11.0 RBC 3.98 M/uL Low 4.00-5.40 Hemoglobin 13.1 gm/dL 12.0-16.0 Hematocrit 39.3 % 36.0-47.0 MCV 98.6 fL High 80.0-97.0 MCH 32.8 pg High 27.0-32.0 MCHC 33.3 g/dL 32.0-36.0 RDW 13.5 % 11.5-14.5 PLT Count 238 K/ul 140-400 MPV 7.5 FL 7.1-10.7 Neutrophil 51.5 % 35.0-75.0 Lymphocyte 29.6 % 16.0-52.0 Monocyte 14.7 % High 2.0-10.0 Eosinophil 3.3 % 0.0-5.0 Basophil 0.9 % 0.0-4.0 Abs Neutrophils 2.3 K/uL 2.1-8.0 Abs Lymphocytes 1.3 K/uL 0.8-5.5 Abs Monocytes 0.7 K/uL 0.1-1.0 Abs Eosinophils 0.1 K/uL 0.0-0.5 Abs Basophils 0.0 K/uL 0.0-0.3 Laboratory test finding 04/10/2018 [facility] TSH 2.83 uIU/mL 0.35-4.94 Basic (BMP) 04/10/2018 [facility] Sodium 146 mmol/L 135-146 12 Potassium 4.0 mmol/L 3.5-5.2 Chloride# 107 mmol/L 97-110 13 Carbon Dioxide 30 mmol/L 24-34 Glucose 103 mg/dL 70-105 BUN 18 mg/dL 6-26 Creatinine 1.0 mg/dL 0.5-1.4 Calcium 9.1 mg/dL 8.5-10.2 Non Nilda Egfr 56 Low >60 14 Nilda Egfr >60 >60 15 Anion Gap 9 mmol/L 5-15 16 Hepatic Panel (LFT) 09/12/2017 [facility] Total Protein 6.6 g/dL 6.0-8.0 Albumin 4.1 g/dL 3.6-4.9 Total Bilirubin 0.5 mg/dL 0.1-1.3 Direct Bilirubin 0.2 mg/dL 0.0-0.4 Alkaline Phosphatase 88 U/L 24-140 Alt 17 U/L 3-42 Ast 23 U/L 8-42 Laboratory test 08/25/2017 [facility] Urine Culture Microbiology res 17 finding <SEE NOTE> CBC With Auto Diff 08/25/2017 [facility] WBC 5.0 K/uL 4.1-11.0 18 RBC 3.71 M/uL Low 4.00-5.40 Hemoglobin 12.4 gm/dL 12.0-16.0 Hematocrit 37.0 % 36.0-47.0 MCV 99.8 fL High 80.0-97.0 MCH 33.5 pg High 27.0-32.0 MCHC 33.5 g/dL 32.0-36.0 RDW 13.5 % 11.5-14.5 PLT Count 218 K/ul 140-400 MPV 8.4 FL 7.1-10.7 Neutrophil 69.6 % 35.0-75.0 Lymphocyte 10.5 % Low 16.0-52.0 Monocyte 18.6 % High 2.0-10.0 Eosinophil 0.8 % 0.0-5.0 Basophil 0.5 % 0.0-4.0 Abs Neutrophils 3.5 K/uL 2.1-8.0 Abs Lymphocytes 0.5 K/uL Low 0.8-5.5 Abs Monocytes 0.9 K/uL 0.1-1.0 Abs Eosinophils 0.0 K/uL 0.0-0.5 Abs Basophils 0.0 K/uL 0.0-0.3 Comprehensive Met Panel-[facility]CMG 08/25/2017 [facility] Sodium 141 mmol/L 135- 146 19 Potassium 4.3 mmol/L 3.5-5.2 Chloride# 103 mmol/L 97-110 20 Carbon Dioxide 27 mmol/L 24-34 Glucose 87 mg/dL 70-105 Creatinine 0.9 mg/dL 0.5-1.4 Calcium 9.3 mg/dL 8.5-10.2 Total Protein 6.5 g/dL 6.0-8.0 Albumin 4.0 g/dL 3.6-4.9 Globulin 2.5 g/dL 2.0-3.5 A/G Ratio 1.6 Ratio 1.0-2.2 Total Bilirubin 1.5 mg/dL High 0.1-1.3 Alkaline Phosphatase 148 U/L High 24-140 Alt 204 U/L High 3-42 Ast 129 U/L High 8-42 Nilda Egfr >60 >60 21 Non Nilda Egfr 57 Low >60 22 Anion Gap 11 mmol/L 7-16 23 BUN 15 mg/dL 6-26 Laboratory test finding 08/25/2017 [facility] TSH 1.66 uIU/mL 0.35-4.94 Vitamin B12 689 pg/mL 180-914 Laboratory test finding 08/25/2017 [facility] 5 Nucleotidase 32 U/L High 24 Lipid Treatment 04/21/2017 [facility] Cholesterol 192 mg/dL 50-199 Triglycerides 119 mg/dL 30-200 HDL 62 mg/dL 35-85 25 Chol/ HDL Ratio 3.1 ratio Low 3.7-5.6 VLDL 24 mg/dL 2-29 LDL (Calc) 107 mg/dL High 20-99 26 Alt 12 U/L 3-42 Ast 19 U/L 8-42 Lipid Treatment 12/13/2016 [facility] Cholesterol 211 mg/dL High 50-199 Triglycerides 118 mg/dL 30-200 HDL 67 mg/dL 35-85 27 Chol/ HDL Ratio 3.1 ratio Low 3.7-5.6 VLDL 24 mg/dL 2-29 LDL (Calc) 120 mg/dL High 20-99 28 Alt 13 U/L 3-42 Ast 20 U/L 8-42 Basic (BMP) 12/13/2016 [facility] Sodium 141 mmol/L 134-142 Potassium 3.9 mmol/L 3.5-5.2 Chloride 104 mmol/L 97-109 Carbon Dioxide 31 mmol/L 24-34 Glucose 87 mg/dL 70-105 BUN 25 mg/dL 6-26 Creatinine 0.9 mg/dL 0.5-1.4 Calcium 9.2 mg/dL 8.5-10.2 Anion Gap 10 mmol/L 6-14 Non Nilda Egfr 60 Low >60 29 Nilda Egfr >60 >60 30 CBC With Auto Diff 12/13/2016 [facility] WBC 4.8 K/uL 4.1-11.0 RBC 4.26 M/uL 4.00-5.40 Hemoglobin 13.7 gm/dL 12.0-16.0 Hematocrit 41.4 % 36.0-47.0 MCV 97.3 fL High 80.0-97.0 MCH 32.1 pg High 27.0-32.0 MCHC 33.0 g/dL 32.0-36.0 RDW 13.3 % 11.5-14.5 PLT Count 267 K/ul 140-400 Neutrophil 63.6 % 35.0-75.0 Lymphocyte 19.8 % 16.0-52.0 Monocyte 13.7 % High 2.0-10.0 Eosinophil 1.6 % 0.0-5.0 Basophil 1.3 % 0.0-4.0 Abs Neutrophils 3.1 K/uL 2.1-8.0 Abs Lymphocytes 1.0 K/uL 0.8-5.5 Abs Monocytes 0.7 K/uL 0.1-1.0 Abs Eosinophils 0.1 K/uL 0.0-0.5 Abs Basophils 0.1 K/uL 0.0-0.3 Laboratory test finding 08/08/2016 [facility] TSH 2.78 uIU/mL 0.35-4.94 31 Basic (BMP) 08/08/2016 [facility] Sodium 141 mmol/L 134-142 Potassium 4.2 mmol/L 3.5-5.2 Chloride 103 mmol/L 97-109 Carbon Dioxide 32 mmol/L 24-34 Glucose 90 mg/dL 70-105 BUN 19 mg/dL 6- Creatinine 1.0 mg/dL 0.5-1.4 Calcium 9.3 mg/dL 8.5-10.2 Anion Gap 10 mmol/L 6-14 Non Nilda Egfr 56 Low >60 32 Nilda Egfr >60 >60 33 CBC With Auto Diff 08/08/2016 [facility] WBC 4.5 K/uL 4.1-11.0 RBC 3.98 M/uL Low 4.00-5.40 Hemoglobin 12.9 gm/dL 12.0-16.0 Hematocrit 39.2 % 36.0-47.0 MCV 98.4 fL High 80.0-97.0 MCH 32.4 pg High 27.0-32.0 MCHC 33.0 g/dL 32.0-36.0 RDW 14.9 % High 11.5-14.5 PLT Count 231 K/ul 140-400 Neutrophil 62.9 % 35.0-75.0 Lymphocyte 22.4 % 16.0-52.0 Monocyte 12.0 % High 2.0-10.0 Eosinophil 1.8 % 0.0-5.0 Basophil 0.9 % 0.0-4.0 Abs Neutrophils 2.9 K/uL 2.1-8.0 Abs Lymphocytes 1.0 K/uL 0.8-5.5 Abs Monocytes 0.5 K/uL 0.1-1.0 Abs Eosinophils 0.1 K/uL 0.0-0.5 Abs Basophils 0.0 K/uL 0.0-0.3 Lipid Treatment 08/08/2016 [facility] Cholesterol 192 mg/dL 50-199 Triglycerides 131 mg/dL 30-200 HDL 57 mg/dL 35-85 34 Chol/ HDL Ratio 3.4 ratio Low 3.7-5.6 VLDL 26 mg/dL 2-29 LDL (Calc) 109 mg/dL High 20-99 35 Alt 14 U/L 3-42 Ast 22 U/L 8-42 Lipid Treatment 01/26/2016 [facility] Cholesterol 167 mg/dL 50-199 36 Triglycerides 152 mg/dL 30-200 HDL 52 mg/dL 35-85 37 Chol/ HDL Ratio 3.2 ratio Low 3.7-5.6 VLDL 30 mg/dL High 2-29 LDL (Calc) 85 mg/dL 20-99 38 Alt 18 U/L 3-42 Ast 25 U/L 8-42 Lipid Treatment 08/10/2015 [facility] Cholesterol 203 mg/dL High 50-199 Triglycerides 128 mg/dL 30-200 HDL 56 mg/dL 35-85 39 Chol/ HDL Ratio 3.6 ratio Low 3.7-5.6 VLDL 26 mg/dL 2-29 LDL (Calc) 121 mg/dL High 20-99 40 Alt 17 U/L 3-42 Ast 23 U/L 8-42 CBC With Auto Diff 08/10/2015 [facility] WBC 4.1 K/uL 4.1-11.0 RBC 4.25 M/uL 4.00-5.40 Hemoglobin 13.7 gm/dL 12.0-16.0 Hematocrit 42.2 % 36.0-47.0 MCV 99.4 fL High 80.0-97.0 MCH 32.2 pg High 27.0-32.0 MCHC 32.4 g/dL 32.0-36.0 RDW 14.4 % 11.5-14.5 PLT Count 180 K/ul 140-400 Neutrophil 60.0 % 35.0-75.0 Lymphocyte 23.8 % 16.0-52.0 Monocyte 12.9 % High 2.0-10.0 Eosinophil 2.1 % 0.0-5.0 Basophil 1.2 % 0.0-4.0 Abs Neutrophils 2.5 K/uL 2.1-8.0 Abs Lymphocytes 1.0 K/uL 0.8-5.5 Abmon 0.5 K/uL 0.1-1.0 Abs Eosinophils 0.1 K/uL 0.0-0.5 Abs Basophils 0.1 K/uL 0.0-0.3 Basic (BMP) 08/10/2015 [facility] Sodium 142 mmol/L 134-142 Potassium 4.3 mmol/L 3.5-5.2 Chloride 103 mmol/L 97-109 Carbon Dioxide 32 mmol/L 24-34 Glucose 100 mg/dL 70-105 BUN 16 mg/dL 6-26 Creatinine 0.9 mg/dL 0.5-1.4 Calcium 9.2 mg/dL 8.5-10.2 Anion Gap 11 mmol/L 6-14 Non Nilda Egfr >60 >60 41 Nilda Egfr >60 >60 42 Laboratory test 08/10/2015 [facility] TSH 3.07 uIU/mL 0.35-4.94 finding Urine Screen 03/10/2015 [facility] Urine Color STRAW Yellow (315)- - Urine Clarity CLEAR Clear Urine Glucose - Dipstick NEGATIVE mg/dL Negative Urine Bilirubin - Dipstick NEGATIVE Negative Urine Ketone NEGATIVE mg/dL Negative Urine Specific Huggins 1.010 1.010-1.030 Urine Blood NEGATIVE Negative Urine PH 7.0 6.5-7.5 Urine Protein - Dipstick NEGATIVE mg/dL Negative Urine Urobilinogen - Dipstick 0.2 E.U./dL 0.2-1.0 Urine Nitrite - Dipstick NEGATIVE Negative Urine Leuk Esterase NEGATIVE Negative Comprehensive Metabolic 03/10/2015 [facility] Glucose 116 mg/dL High 74-106 Panel (315)- - BUN 19 mg/dL High 7-18 Creatinine 0.9 mg/dL 0.6-1.3 Glom Filtration Rate, Estimate >60 mL/min >60 If >60 mL/min >60 43 BUN/Creat 21.1 ratio Sodium 143 mmol/L 136-145 Potassium 4.2 mmol/L 3.5-5.1 Chloride 107 mmol/L 98-107 Carbon Dioxide 30 mmol/L 21-32 Anion Gap 6 mEq/L Low 8-16 Calcium 9.2 mg/dL 8.5-10.1 Total Protein 7.5 g/dL 6.4-8.2 Albumin 4.1 g/dL 3.4-5.0 Globulin 3.4 g/dL 1.9-4.3 Alb/Glob 1.2 ratio Bilirubin,Total 0.5 mg/dL 0.2-1.0 Sgot/Ast 23 U/L 15-37 SGPT/Alt 20 U/L 12-78 Alkaline Phosphatase 78 U/L 45-117 Laboratory test finding 03/10/2015 [facility] CK 145 U/L 26-192 (315)- - Troponin-I < 0.015 ng/mL 44 CBC W/Automated Diff 03/10/2015 [facility] White Blood 5.6 K/uL 3.1-10.7 (315)- - Count Red Blood Count 4.32 M/uL 3.90-5.40 Hemoglobin 14.3 gm/dL 11.6-15.8 Hematocrit 43.7 % 36.0-46.1 Mean Cell Volume 101.2 fl High 80.9-99.0 Mean Corpuscular HGB 33.1 pg High 25.9-32.7 Mean Corpuscular HGB Conc 32.7 g/dL 30.8-34.3 Platelet Count 214 K/uL 155-360 Red Cell Distri Width SD 50.2 fl High 3-47 Red Cell Distri Width %CV 13.8 % 11.7-14.4 Mean Platelet Volume 9.7 fL 8.9-12.4 Neut% 59.5 % 40.4-72.8 Lymph % 23.4 % 17.0-46.1 Boyd % 13.7 % High 4.3-13.2 Eo% 2.9 % 0.0-6.6 Bas% 0.5 % 0.0-1.1 Neut# 3.31 K/uL 1.0-7.0 Lymph # 1.30 K/uL Low 1.8-7.0 Boyd # 0.76 K/uL 0.3-0.9 Eos # 0.16 K/uL 0.0-0.5 Baso # 0.03 K/uL 0.0-0.1 Protime 03/10/2015 [facility] Protime 13.6 seconds 12.0-14.4 (315)- - Inr 1.0 0.9-1.1 45 Laboratory test 03/10/2015 [facility] Act Partial 28.7 seconds 23.4-35.0 46 finding (315)- - Thrombo Time C-Reactive Protein,Quant 3.0 mg/L <3.0 47 Sedimentation Rate 10 mm/hr 0-30 Lipid Treatment 03/06/2015 [facility] Cholesterol 164 mg/dL 50-199 48 Triglycerides 106 mg/dL 30-200 HDL 49 mg/dL 35-85 49 Chol/ HDL Ratio 3.3 ratio Low 3.7-5.6 VLDL 21 mg/dL 2-29 LDL (Calc) 94 mg/dL 20-99 50 Alt 12 U/L 3-42 Ast 22 U/L 8-42 Basic (BMP) 03/06/2015 [facility] Sodium 141 mmol/L 134-142 Potassium 4.1 mmol/L 3.5-5.2 Chloride 104 mmol/L 97-109 Carbon Dioxide 32 mmol/L 24-34 Glucose 98 mg/dL 70-105 BUN 17 mg/dL 6-26 Creatinine 0.9 mg/dL 0.5-1.4 Calcium 9.2 mg/dL 8.5-10.2 Anion Gap 9 mmol/L 6-14 Non Nilda Egfr 61 >60 51 Nilda Egfr >60 >60 52 Laboratory test finding 08/25/2014 N2N/[facility] Import % Baso. 1.5 % 0.0-2.0 % Eos. 4.2 % High 0.0-4.0 % Lymph 21 % 20-44 % Boyd 14.5 % High 2.0-10.0 % Sweta 59 % 50-70 Absolute Baso. 0.1 K/ul 0.0-0.3 Absolute Eos. 0.3 K/ul 0.0-0.5 Absolute Lymph. 1.4 K/ul 0.8-4.8 Absolute Boyd. 1.0 K/ul 0.1-1.0 Absolute Sweta. 4.16 K/ul 2.05-7.63 Alt 15.0 U/L 9.0-52.0 Ast 22.0 U/L 14.0-36.0 BUN 14.0 mg/dL 7.0-18.0 BUN/Creat Ratio 17.5 ratio 12.0-20.0 Calcium 9.3 mg/dL 8.7-10.5 Chloride 106.0 mmol/L 98.0-107.0 Co2 29.0 mmol/L 22.0-30.0 Creatinine-Serum 0.8 mg/dL 0.7-1.2 Glucose 110.0 mg/dL 75.0-110.0 HCT 41.0 % 37.0-51.0 HGB 13.5 Gm/dl 12.0-16.0 MCH 32.0 pg 26.0-32.0 MCHC 33.0 g/dL 31.0-36.0 MCV 96.9 Fl 80.0-97.0 MPV 5.9 fL Low 6.0-10.0 PLT 322 K/ul 140-440 Potasium 3.8 mmol/L 3.6-5.0 RBC 4.2 M/ul 4.2-6.3 RDW 12.0 % 11.5-14.5 Sodium 144.0 mmil/L 137.0-145.0 TSH 1.79 uIU/ml 0.50-6.00 WBC 7.0 K/ul 4.1-10.9 eGFR 73.0 Lipid Panel 08/25/2014 N2N/[employer] Import Chol/HDL Ratio 4.1 ratio Cholesterol 154.0 mg/dL 50.0-199.0 HDL 38.0 mg/dL 29.0-86.0 LDL, Calculated 91.6 mg/dL 20.0-129.0 Triglycerides 122.0 mg/dL 30.0-249.0 vLDL 24.4 ng/dL Laboratory test 08/17/2014 [employer] [facility] Throat Culture See Note 53 finding Complete Lipid Panel 03/03/2014 [employer] Chol/HDL Ratio 3.5 ratio Cholesterol 176.0 mg/dL 50.0-199.0 HDL 50.0 mg/dL 29.0-86.0 LDL, Calculated 105.0 mg/dL 20.0-129.0 Triglycerides 105.0 mg/dL 30.0-249.0 vLDL 21.0 ng/dL Laboratory test finding 03/03/2014 [employer] Import % Baso. 1.6 % 0.0-2.0 % Eos. 2.0 % 0.0-4.0 % Lymph 28 % 20-44 % Boyd 15.3 % High 2.0-10.0 % Sweta 53 % 50-70 Absolute Baso. 0.1 K/ul 0.0-0.3 Absolute Eos. 0.1 K/ul 0.0-0.5 Absolute Lymph. 1.8 K/ul 0.8-4.8 Absolute Boyd. 1.0 K/ul 0.1-1.0 Absolute Sweta. 3.43 K/ul 2.05-7.63 Alt 15.0 U/L 9.0-52.0 Ast 19.0 U/L 14.0-36.0 BUN 17.0 mg/dL 7.0-18.0 BUN/Creat Ratio 21.3 ratio High 12.0-20.0 Calcium 8.9 mg/dL 8.7-10.5 Chloride 106.0 mmol/L 98.0-107.0 Co2 29.0 mmol/L 22.0-30.0 Creatinine-Serum 0.8 mg/dL 0.7-1.2 Glucose 109.0 mg/dL 75.0-110.0 HCT 42.9 % 37.0-51.0 HGB 12.9 Gm/dl 12.0-16.0 MCH 29.9 pg 26.0-32.0 MCHC 30.0 g/dL Low 31.0-36.0 MCV 99.4 Fl High 80.0-97.0 MPV 6.2 fL 6.0-10.0 PLT 253 K/ul 140-440 Potasium 3.7 mmol/L 3.6-5.0 RBC 4.3 M/ul 4.2-6.3 RDW 12.8 % 11.5-14.5 Sodium 143.0 mmil/L 137.0-145.0 TSH 3.22 uIU/ml 0.50-6.00 WBC 6.5 K/ul 4.1-10.9 eGFR 73.2 Lipid Panel 09/16/2013 [employer] Chol/HDL Ratio 3.8 ratio Cholesterol 188.0 mg/dL 50.0-199.0 HDL 50.0 mg/dL 29.0-86.0 LDL, Calculated 115.2 mg/dL 20.0-129.0 Triglycerides 114.0 mg/dL 30.0-249.0 vLDL 22.8 ng/dL Laboratory test finding 09/16/2013 [employer] [facility] Alt 17.0 U/L 9.0-52.0 Ast 21.0 U/L 14.0-36.0 Lipid Panel 04/06/2013 [employer] Import Chol/HDL Ratio 3.5 ratio Cholesterol 161.0 mg/dL 50.0-199.0 HDL 46.0 mg/dL 29.0-86.0 LDL, Calculated 96.8 mg/dL 20.0-129.0 Triglycerides 91.0 mg/dL 30.0-249.0 vLDL 18.2 ng/dL Laboratory test finding 04/06/2013 [employer] [facility] % Baso. 1.5 % 0.0-2.0 % Eos. 2.7 % 0.0-4.0 % Lymph 29 % 20-44 % Boyd 13.5 % High 2.0-10.0 % Sweta 53 % 50-70 Absolute Baso. 0.1 K/ul 0.0-0.3 Absolute Eos. 0.2 K/ul 0.0-0.5 Absolute Lymph. 1.8 K/ul 0.8-4.8 Absolute Boyd. 0.8 K/ul 0.1-1.0 Absolute Sweta. 3.32 K/ul 2.05-7.63 Alt 20.0 U/L 9.0-52.0 Ast 23.0 U/L 14.0-36.0 BUN 18.0 mg/dL 7.0-18.0 BUN/Creat Ratio 22.5 ratio High 12.0-20.0 Calcium 9.0 mg/dL 8.7-10.5 Chloride 105.0 mmol/L 98.0-107.0 Co2 26.0 mmol/L 22.0-30.0 Creatinine-Serum 0.8 mg/dL 0.7-1.2 Glucose 106.0 mg/dL 75.0-110.0 HCT 42.5 % 37.0-51.0 HGB 13.5 Gm/dl 12.0-16.0 MCH 32.1 pg High 26.0-32.0 MCHC 31.8 g/dL 31.0-36.0 MCV 101.0 Fl High 80.0-97.0 MPV 6.7 fL 6.0-10.0 PLT 259 K/ul 140-440 Potasium 4.0 mmol/L 3.6-5.0 RBC 4.2 M/ul 4.2-6.3 RDW 12.7 % 11.5-14.5 Sodium 143.0 mmil/L 137.0-145.0 TSH 2.33 uIU/ml 0.50-6.00 WBC 6.3 K/ul 4.1-10.9 eGFR 73.4 1 3 mos 2 Per NCEP ATP III Guidelines: Results lower than 40 mg/dL are suggestive of increased risk for coronary artery disease. Results > or=to 60 mg/dL are considered a negative risk factor. 3 Per NCEP ATP III Guidelines: Normal Population <130 Patients with medical conditions: CHD/DM Optimal: <100 Borderline high: 130-159 High: 160-189 Very high: >189 4 Updated reference range on new analyzer 5 Updated reference range on new analyzer 6 Concerning GFR Guidelines: Normal function or mild renal disease, if clinically at risk: >/=60 mL/min Moderately decreased: 30-59 Severely decreased: 15-29 Renal failure: <15 Glomerular Filtration Rate (GFR) is estimated based on the MDRD equation, which assumes a steady state for creatinine as recommended by the National Kidney Disease Education Program in conjunction with the National Institutes of Health and the National Kidney Foundation. Clinical conditions in which it may be necessary to measure GFR by using clearance methods include extremes of age and body size, severe malnutrition or obesity, diseases of skeletal muscle, paraplegia or quadriplegia, vegetarian diet, rapidly changing kidney function, and calculation of the dose of potentially toxic drugs that are excreted by the kidneys. 7 Concerning GFR Guidelines for Americans: Normal function or mild renal disease, if clinically at risk: >/=60 mL/min Moderately decreased: 30-59 Severely decreased: 15-29 Renal failure: <15 8 Updated Reference Range 9 prior to MEDICARE WELLNESS EXAM in april 19 Per NCEP ATP III Guidelines: Results lower than 40 mg/dL are suggestive of increased risk for coronary artery disease. Results > or=to 60 mg/dL are considered a negative risk factor. 11 Per NCEP ATP III Guidelines: Normal Population <130 Patients with medical conditions: CHD/DM Optimal: <100 Borderline high: 130-159 High: 160-189 Very high: >189 12 Updated reference range on new analyzer 13 Updated reference range on new analyzer 14 Concerning GFR Guidelines: Normal function or mild renal disease, if clinically at risk: >/=60 mL/min Moderately decreased: 30-59 Severely decreased: 15-29 Renal failure: <15 Glomerular Filtration Rate (GFR) is estimated based on the MDRD equation, which assumes a steady state for creatinine as recommended by the National Kidney Disease Education Program in conjunction with the National Institutes of Health and the National Kidney Foundation. Clinical conditions in which it may be necessary to measure GFR by using clearance methods include extremes of age and body size, severe malnutrition or obesity, diseases of skeletal muscle, paraplegia or quadriplegia, vegetarian diet, rapidly changing kidney function, and calculation of the dose of potentially toxic drugs that are excreted by the kidneys. 15 Concerning GFR Guidelines for Americans: Normal function or mild renal disease, if clinically at risk: >/=60 mL/min Moderately decreased: 30-59 Severely decreased: 15-29 Renal failure: <15 16 Updated Reference Range 17 Microbiology results SOURCE Clean Catch Midstream FINAL RESULT No growth 18 today 19 Updated reference range on new analyzer 20 Updated reference range on new analyzer 21 Concerning GFR Guidelines for Americans: Normal function or mild renal disease, if clinically at risk: >/=60 mL/min Moderately decreased: 30-59 Severely decreased: 15-29 Renal failure: <15 22 Concerning GFR Guidelines: Normal function or mild renal disease, if clinically at risk: >/=60 mL/min Moderately decreased: 30-59 Severely decreased: 15-29 Renal failure: <15 Glomerular Filtration Rate (GFR) is estimated based on the MDRD equation, which assumes a steady state for creatinine as recommended by the National Kidney Disease Education Program in conjunction with the National Institutes of Health and the National Kidney Foundation. Clinical conditions in which it may be necessary to measure GFR by using clearance methods include extremes of age and body size, severe malnutrition or obesity, diseases of skeletal muscle, paraplegia or quadriplegia, vegetarian diet, rapidly changing kidney function, and calculation of the dose of potentially toxic drugs that are excreted by the kidneys. 23 Updated reference range on new analyzer 24 Reference range: 0 to 15 INTERPRETIVE INFORMATION: 5' Nucleotidase Test developed and characteristics determined by [facility]. See Compliance Statement B: [facility] Performed by [facility], [address] [place] [id number] [email or web address] Eder Chavez MD, Lab. Director Unless otherwise specified, testing performed by [facility] [address] [place] [id number] 25 Per NCEP ATP III Guidelines: Results lower than 40 mg/dL are suggestive of increased risk for coronary artery disease. Results > or=to 60 mg/dL are considered a negative risk factor. 26 Per NCEP ATP III Guidelines: Normal Population <130 Patients with medical conditions: CHD/DM Optimal: <100 Borderline high: 130-159 High: 160-189 Very high: >189 27 Per NCEP ATP III Guidelines: Results lower than 40 mg/dL are suggestive of increased risk for coronary artery disease. Results > or=to 60 mg/dL are considered a negative risk factor. 28 Per NCEP ATP III Guidelines: Normal Population <130 Patients with medical conditions: CHD/DM Optimal: <100 Borderline high: 130-159 High: 160-189 Very high: >189 29 Concerning GFR Guidelines: Normal function or mild renal disease, if clinically at risk: >/=60 mL/min Moderately decreased: 30-59 Severely decreased: 15-29 Renal failure: <15 Glomerular Filtration Rate (GFR) is estimated based on the MDRD equation, which assumes a steady state for creatinine as recommended by the National Kidney Disease Education Program in conjunction with the National Institutes of Health and the National Kidney Foundation. Clinical conditions in which it may be necessary to measure GFR by using clearance methods include extremes of age and body size, severe malnutrition or obesity, diseases of skeletal muscle, paraplegia or quadriplegia, vegetarian diet, rapidly changing kidney function, and calculation of the dose of potentially toxic drugs that are excreted by the kidneys. 30 Concerning GFR Guidelines for Americans: Normal function or mild renal disease, if clinically at risk: >/=60 mL/min Moderately decreased: 30-59 Severely decreased: 15-29 Renal failure: <15 31 3 mos 32 Concerning GFR Guidelines: Normal function or mild renal disease, if clinically at risk: >/=60 mL/min Moderately decreased: 30-59 Severely decreased: 15-29 Renal failure: <15 Glomerular Filtration Rate (GFR) is estimated based on the MDRD equation, which assumes a steady state for creatinine as recommended by the National Kidney Disease Education Program in conjunction with the National Institutes of Health and the National Kidney Foundation. Clinical conditions in which it may be necessary to measure GFR by using clearance methods include extremes of age and body size, severe malnutrition or obesity, diseases of skeletal muscle, paraplegia or quadriplegia, vegetarian diet, rapidly changing kidney function, and calculation of the dose of potentially toxic drugs that are excreted by the kidneys. 33 Concerning GFR Guidelines for Americans: Normal function or mild renal disease, if clinically at risk: >/=60 mL/min Moderately decreased: 30-59 Severely decreased: 15-29 Renal failure: <15 34 Per NCEP ATP III Guidelines: Results lower than 40 mg/dL are suggestive of increased risk for coronary artery disease. Results > or=to 60 mg/dL are considered a negative risk factor. 35 Per NCEP ATP III Guidelines: Normal Population <130 Patients with medical conditions: CHD/DM Optimal: <100 Borderline high: 130-159 High: 160-189 Very high: >189 36 6 mo 37 Per NCEP ATP III Guidelines: Results lower than 40 mg/dL are suggestive of increased risk for coronary artery disease. Results > or=to 60 mg/dL are considered a negative risk factor. 38 Per NCEP ATP III Guidelines: Normal Population <130 Patients with medical conditions: CHD/DM Optimal: <100 Borderline high: 130-159 High: 160-189 Very high: >189 39 Per NCEP ATP III Guidelines: Results lower than 40 mg/dL are suggestive of increased risk for coronary artery disease. Results > or=to 60 mg/dL are considered a negative risk factor. 40 Per NCEP ATP III Guidelines: Normal Population <130 Patients with medical conditions: CHD/DM Optimal: <100 Borderline high: 130-159 High: 160-189 Very high: >189 41 Concerning GFR Guidelines: Normal function or mild renal disease, if clinically at risk: >/=60 mL/min Moderately decreased: 30-59 Severely decreased: 15-29 Renal failure: <15 Glomerular Filtration Rate (GFR) is estimated based on the MDRD equation, which assumes a steady state for creatinine as recommended by the National Kidney Disease Education Program in conjunction with the National Institutes of Health and the National Kidney Foundation. Clinical conditions in which it may be necessary to measure GFR by using clearance methods include extremes of age and body size, severe malnutrition or obesity, diseases of skeletal muscle, paraplegia or quadriplegia, vegetarian diet, rapidly changing kidney function, and calculation of the dose of potentially toxic drugs that are excreted by the kidneys. 42 Concerning GFR Guidelines for Americans: Normal function or mild renal disease, if clinically at risk: >/=60 mL/min Moderately decreased: 30-59 Severely decreased: 15-29 Renal failure: <15 43 Note: Persistent reduction for 3 months or more in an eGFR <60 mL/min/1.73 m2 defines CKD. Patients with eGFR values >/=60 mL/min/1.73 m2 may also have CKD if evidence of persistent proteinuria is present. The original MDRD equation for estimated GFR is not valid for patients less than 18 years of age. Additional information may be found at www.kdoqi.org. 44 0.0 - 0.045 ng/mL: Normal 0.046 - 0.5 ng/mL: Suggestive 0.6 - 1.5 ng/mL: Consistent 45 THERAPEUTIC INR RANGE: 2.0 - 3.0 DVT, Pulmonary embolus, prophylaxis against venous thrombosis or systemic embolization in high risk patients. 2.5 - 3.5 Mechanical heart valves 46 Is patient on anticoagulants? Coumadin QUERY: Anticoagulant Therapy? QUERY: Date of Last Dose: QUERY: Time of Last Dose: 47 ADDED TO C168 48 6 mons 49 Per NCEP ATP III Guidelines: Results lower than 40 mg/dL are suggestive of increased risk for coronary artery disease. Results > or=to 60 mg/dL are considered a negative risk factor. 50 Per NCEP ATP III Guidelines: Normal Population <130 Patients with medical conditions: CHD/DM Optimal: <100 Borderline high: 130-159 High: 160-189 Very high: >189 51 Concerning GFR Guidelines: Normal function or mild renal disease, if clinically at risk: >/=60 mL/min Moderately decreased: 30-59 Severely decreased: 15-29 Renal failure: <15 Glomerular Filtration Rate (GFR) is estimated based on the MDRD equation, which assumes a steady state for creatinine as recommended by the National Kidney Disease Education Program in conjunction with the National Institutes of Health and the National Kidney Foundation. Clinical conditions in which it may be necessary to measure GFR by using clearance methods include extremes of age and body size, severe malnutrition or obesity, diseases of skeletal muscle, paraplegia or quadriplegia, vegetarian diet, rapidly changing kidney function, and calculation of the dose of potentially toxic drugs that are excreted by the kidneys. 52 Concerning GFR Guidelines for Americans: Normal function or mild renal disease, if clinically at risk: >/=60 mL/min Moderately decreased: 30-59 Severely decreased: 15-29 Renal failure: <15 53 NORMAL THROAT SHELLY Procedures Date Code Description Status 01/26/2019 73330 Measure Blood Oxygen Level Single Determination Completed 01/19/2019 23641 Brief Emotional/Behav Assessment W/ Scoring Doc Per Completed Standard Inst 06/30/2018 92225 Brief Emotional/Behav Assessment W/ Scoring Doc Per Completed Standard Inst 01/02/2018 [id number] Mammogram Completed 04/21/2017 41031 Brief Emotional/Behav Assessment W/ Scoring Doc Per Completed Standard Inst 09/27/2015 97142 Bone Density Study (Dexa) Axial Skeleton Completed (Hips,Pelvis,Spine) 09/27/2015 [id number] Bone Mineral Density Test Completed 11/10/2008 [id number] Colonoscopy Completed Encounters Type Date Location Provider Dx Diagnosis Office Visit 01/19/2019 [facility] Saloni Johnson MD Z00.00 Encntr for general 4:00p adult medical exam w/o abnormal findings Z13.31 Encounter for screening for depression F33.1 Major depressive disorder, recurrent, moderate I48.91 Unspecified atrial fibrillation R12 Heartburn J30.9 Allergic rhinitis, unspecified E78.2 Mixed hyperlipidemia I10 Essential (primary) hypertension M15.9 Polyosteoarthritis, unspecified J45.20 Mild intermittent asthma, uncomplicated R26.81 Unsteadiness on feet F01.50 Vascular dementia without behavioral disturbance G47.30 Sleep apnea, unspecified I87.2 Venous insufficiency (chronic) (peripheral) N18.3 Chronic kidney disease, stage 3 (moderate) Z12.31 Encntr screen mammogram for malignant neoplasm of breast J18.9 Pneumonia, unspecified organism Z68.27 Body mass index (BMI) 27.0-27.9, adult Office Visit 12/03/2018 1:30p [facility] Schedule, Nurses Z11.1 Encounter for screening for respiratory tuberculosis Office Visit 10/19/2018 11:00a [facility] Saloni Johnson MD R12 Heartburn F33.1 Major depressive disorder, recurrent, moderate J30.9 Allergic rhinitis, unspecified E78.2 Mixed hyperlipidemia I48.91 Unspecified atrial fibrillation I10 Essential (primary) hypertension M15.9 Polyosteoarthritis, unspecified J45.20 Mild intermittent asthma, uncomplicated F01.50 Vascular dementia without behavioral disturbance N18.3 Chronic kidney disease, stage 3 (moderate) G47.30 Sleep apnea, unspecified Z68.27 Body mass index (BMI) 27.0-27.9, adult Office Visit 07/20/2018 11:00a [facility] Saloni Johnson MD R12 Heartburn F33.1 Major depressive disorder, recurrent, moderate J30.9 Allergic rhinitis, unspecified E78.2 Mixed hyperlipidemia I48.91 Unspecified atrial fibrillation I10 Essential (primary) hypertension M15.9 Polyosteoarthritis, unspecified J45.20 Mild intermittent asthma, uncomplicated F01.50 Vascular dementia without behavioral disturbance G47.30 Sleep apnea, unspecified I87.2 Venous insufficiency (chronic) (peripheral) N18.3 Chronic kidney disease, stage 3 (moderate) Z71.9 Counseling, unspecified Z68.28 Body mass index (BMI) 28.0-28.9, adult Office Visit 06/30/2018 11:30a [facility] Jessica Durant, F33.1 Major depressive [employer] disorder, recurrent, moderate Z68.28 Body mass index (BMI) 28.0-28.9, adult Office Visit 04/17/2018 10:30a [facility] Saloni Johnson MD Z00.00 Encntr for general adult medical exam w/o abnormal findings Z13.89 Encounter for screening for other disorder F33.1 Major depressive disorder, recurrent, moderate I48.91 Unspecified atrial fibrillation R12 Heartburn J30.9 Allergic rhinitis, unspecified E78.2 Mixed hyperlipidemia I10 Essential (primary) hypertension R26.9 Unspecified abnormalities of gait and mobility F01.50 Vascular dementia without behavioral disturbance G47.30 Sleep apnea, unspecified I87.2 Venous insufficiency (chronic) (peripheral) J45.20 Mild intermittent asthma, uncomplicated N18.3 Chronic kidney disease, stage 3 (moderate) Z68.30 Body mass index (BMI) 30.0-30.9, adult Office Visit 10/10/2017 10:00a [facility] Saloni Johnson MD R12 Heartburn F33.1 Major depressive disorder, recurrent, moderate J30.9 Allergic rhinitis, unspecified E78.2 Mixed hyperlipidemia I48.91 Unspecified atrial fibrillation I10 Essential (primary) hypertension J45.20 Mild intermittent asthma, uncomplicated F01.50 Vascular dementia without behavioral disturbance G47.30 Sleep apnea, unspecified Office Visit 08/29/2017 1:15p [facility] Saloni Johnson MD R74.0 Nonspec elev of levels of transamns & lactic acid dehydrgnse R41.0 Disorientation, unspecified Office Visit 08/25/2017 10:15a [facility] Saloni Johnson MD R30.0 Dysuria R41.0 Disorientation, unspecified R19.7 Diarrhea, unspecified Office Visit 04/21/2017 10:00a [facility] Saloni Johnson MD Z00.00 Encntr for general adult medical exam w/o abnormal findings R12 Heartburn F33.1 Major depressive disorder, recurrent, moderate J30.9 Allergic rhinitis, unspecified E78.2 Mixed hyperlipidemia I48.91 Unspecified atrial fibrillation I10 Essential (primary) hypertension R26.9 Unspecified abnormalities of gait and mobility F01.50 Vascular dementia without behavioral disturbance G47.30 Sleep apnea, unspecified I87.2 Venous insufficiency (chronic) (peripheral) Z68.30 Body mass index (BMI) 30.0-30.9, adult Office Visit 12/13/2016 9:45a [facility] Saloni Johnson MD F33.1 Major depressive disorder, recurrent, moderate I48.91 Unspecified atrial fibrillation R12 Heartburn J30.9 Allergic rhinitis, unspecified E78.2 Mixed hyperlipidemia I10 Essential (primary) hypertension J45.20 Mild intermittent asthma, uncomplicated B37.2 Candidiasis of skin and nail Office Visit 08/15/2016 9:30a [facility] Saloni Johnson MD F33.1 Major depressive disorder, recurrent, moderate E78.2 Mixed hyperlipidemia I48.91 Unspecified atrial fibrillation I10 Essential (primary) hypertension M15.9 Polyosteoarthritis, unspecified J45.20 Mild intermittent asthma, uncomplicated F01.50 Vascular dementia without behavioral disturbance G47.30 Sleep apnea, unspecified R12 Heartburn Office Visit 04/18/2016 8:45a [facility] Saloni Johnson MD Z00.01 Encounter for general adult medical exam w abnormal findings R12 Heartburn F33.1 Major depressive disorder, recurrent, moderate J30.9 Allergic rhinitis, unspecified E78.2 Mixed hyperlipidemia I48.91 Unspecified atrial fibrillation I10 Essential (primary) hypertension G47.30 Sleep apnea, unspecified M15.9 Polyosteoarthritis, unspecified J45.20 Mild intermittent asthma, uncomplicated R26.9 Unspecified abnormalities of gait and mobility Z68.30 Body mass index (BMI) 30.0-30.9, adult I87.2 Venous insufficiency (chronic) (peripheral) B37.2 Candidiasis of skin and nail F01.50 Vascular dementia without behavioral disturbance Office Visit 02/01/2016 9:00a [facility] Saloni Johnson MD E78.2 Mixed hyperlipidemia R12 Heartburn F33.1 Major depressive disorder, recurrent, moderate J30.9 Allergic rhinitis, unspecified I10 Essential (primary) hypertension I48.0 Paroxysmal atrial fibrillation R26.81 Unsteadiness on feet J45.20 Mild intermittent asthma, uncomplicated F01.50 Vascular dementia without behavioral disturbance 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 Office Visit 08/17/2015 9:00a [facility] Saloni Johnson MD Z23 Encounter for immunization G47.30 Sleep apnea, unspecified R12 Heartburn F33.1 Major depressive disorder, recurrent, moderate J30.9 Allergic rhinitis, unspecified J45.909 Unspecified asthma, uncomplicated I10 Essential (primary) hypertension E78.2 Mixed hyperlipidemia M15.9 Polyosteoarthritis, unspecified I48.0 Paroxysmal atrial fibrillation Z68.33 Body mass index (BMI) 33.0-33.9, adult Office Visit 03/09/2015 9:30a [facility] Saloni Johnson MD V70.0 Exam (Adult) General Medical Routine AT [facility] 780.57 Apnea, Unspecified Sleep Apnea 787.1 Heartburn 296.32 Depressive Disorder Major Recurrent Moderate 477.9 Rhinitis Allergic Cause Unspec 493.00 Asthma Extrinsic Unspecified 401.1 Hypertension Benign 272.2 Hyperlipidemia Mixed 715.00 Osteoarthrosis Generalized Site Unspec 733.90 Bone & Cartilage Disorder Unspec Plan of Treatment Future Appointment(s):02/18/2019 1:00 pm - Saloni Johnson MD at [facility]04/15/2019 9:15 am - Schedule, Laboratory at [facility]04/22/2019 2:45 pm - Saloni Johnson MD at [facility]01/26/2019 - Saloni Johnson MDJ18.9 Pneumonia, unspecified organismComments:reviewed er record with patient and daughter - I feel she is appropriately treated with cefdinir.oximetry is acceptable . pneumonia not yet xowyyiqfA34.2 HemoptysisComments:new problem - she was advised to hold xarelto for blood in the sputum. discussed risks and benefitsof holding xarelto. family agrees with holding this for nowI48.91 Unspecified atrial fibrillationComments:hold xarelto for now due to blood in the sputum and on the anus. daughter will try to get her into cardiology soon for consult.I70.0 Atherosclerosis of aortaComments:seen on chest xray done at urgent care - continue zmudipR02.0 DysuriaComments:Check culture. will start antibiotics if positive. Advised pt to call the office or go to ER if symptoms worsen or if she develops fever.K62.5 Hemorrhage of anus and rectumComments:this is most likely irritated hemorrhoid. stop xarelto for now. if this bleeding does not stop, will referral to [facility]41.82 Altered mental status, unspecifiedNew Medication:Memantine HCL 5 mg - 1 po daily x 1 week, then 1 po twice daily x 1 week, then 2 po every am and 1 po every pm x 1 week, then 2 po bidComments: confusion worsening today. will do trial of memantineFollow up:3-4 weeks follow -up memantine wcnwbO14.25 Body mass index (BMI) 25.0-25.9, adult
[2019-02-05 15:25] VITALS: BP 152/66
--- NOTE | 2019-02-05 15:32 | UC ---
Abdominal Pain Female HPI - HPI Summary HPI Summary: Pt presents to with daughter. Pt with h/o A fib, TIA, HTN, dementia - pt on Amiodarone, Xarelto Pt with 2-3 days progressive urinary urgency, burning, frequency. mild lower abd pain. chronic back pain- no change. No fever, chills. No vomiting. Pt was on cephalexin - changed to Omnicef for PNA approx 2 months ago. Pt recently started on Namenda. Pt with h/o UTI - last . 1 year Pt had neg urinalysis at PCP 2 weeks ago. MAR reviewed - History of Current Complaint Chief Complaint: UCGU Stated Complaint: URINARY Time Seen by Provider: 02/05/19 15:10 Hx Obtained From: Patient, Family/Application Architect, Medical Records - no prvious urine cultures at [facility] Hx From Patient Unobtainable Due To: Dementia ?: No Onset/Duration: Gradual Onset Severity Initially: Mild Severity Currently: Mild Pain Intensity: 2 Pain Scale Used: 0-10 Numeric Location: Suprapubic Radiates: No Allergies/Adverse Reactions: Allergies Allergy/AdvReac Type Severity Reaction Status Date / Time tramadol Allergy Hallucinati Verified 02/05/19 15:37 ons steroids Allergy Unknown Uncoded 02/05/19 15:37 Reaction Details Home Medications: Home Medications Memantine TAB* [Namenda TAB*] 5 mg PO BID 02/05/19 [History Confirmed 02/05/19] PMH/Surg Hx/FS Hx/Imm Hx - Additional Past Medical History Additional PMH: xarelto Previously Healthy: Yes Cardiovascular History: Cardiac Disease, Hypertension, Atrial Fibrillation - Surgical History Surgical History: Yes Surgery Procedure, Year, and Place: cataract. colonoscopy, BENIGN LESION REMOVED FROM NECK. sinus surgery - Family History Known Family History: Positive: Cardiac Disease - mother CHF, Other - Cancer father, Non-Contributory - Social History Occupation: Retired Lives: Assisted Living Alcohol Use: Rare Substance Use Type: None Smoking Status (MU): Former Smoker Type: Cigarettes - Immunization History Most Recent Influenza Vaccination: [id number] season Most Recent Tetanus Shot: UNKNOWN Most Recent Pneumonia Vaccination: 2012 and shingles vac Review of Systems All Other Systems Reviewed And Are Negative: Yes Constitutional: Positive: Negative Skin: Positive: Negative Eyes: Positive: Negative ENT: Positive: Negative Respiratory: Positive: Negative Cardiovascular: Positive: Negative Gastrointestinal: Positive: Negative Genitourinary: Positive: Negative Motor: Positive: Negative Neurovascular: Positive: Negative Musculoskeletal: Positive: Negative Is Patient Immunocompromised?: No Physical Exam - Summary Physical Exam Summary: Vital Signs Reviewed: Yes A+Ox2, no distress, ambulatory, pleasant, no distress Eyes: Conjunctiva Clear, DELICIA. EOM intact and full ENT: Hearing grossly normal TM x 2 clear, - hearing aids b/l mmoist, uvula midline, no exudate, no erythema Neck: Positive: Supple Respiratory: Positive: No respiratory distress, No accessory muscle use + CTA throughout no w/r Cardiovascular: RRR nl s1, s2 no m/r CBT <2 sec abd soft + BS nt/nd no guarding, no distension, no CVA Musculoskeletal Exam: DAVIS x 4 without difficulty Strength Intact, ROM Intact Neurological: Positive: Alert, + sensation throughout Psychological: Positive: Normal Response To Family Skin: Positive: no rash, no ecchymosis Triage Information Reviewed: Yes Completion Of Physical Exam Limited Due To: Dementia - pleasant, appropriate to many questions - not all - basline per daughter - sees her daily Vital Signs: Initial Vital Signs Temp 97.9 F 02/05/19 15:15 Pulse 58 02/05/19 15:15 Resp 20 02/05/19 15:15 BP 152/66 02/05/19 15:15 Pulse Ox 98 02/05/19 15:15 Abd Pain Female Course/Dx - Course Course Of Treatment: Patient presents to urgent care with her daughter. Patient does have a history of dementia. Patient with slight increased confusion per daughter states mostly at her baseline. Patient is on Namenda. Patient here with 2-3 days progressive urinary frequency, urgency, and pressure. Patient without any fevers. No nausea vomiting. No back pain. On exam vital signs are stable. Patient with borderline blood pressure but has a history of same. Patient's urine consistent with UTI. We'll start patient on Augmentin. Patient was recently on Keflex for pneumonia subtle when he uses. No previous cultures available for review in her system. Discussed with patient and daughter that she should have yogurt or probiotics every day. Strict return precautions with the emergency department. Did confer and [employer] comp that your also amiodarone are both compatible with Pyridium. Recommend follow up with primary care. Spoke with the CLICKER OPERATOR at the facility, [facility], where she lives. Aware in agreement with plan. - Differential Dx/Diagnosis Provider Diagnosis: UTI (urinary tract infection) Discharge - Sign-Out/Discharge Documenting (check all that apply): Patient Departure All imaging exams completed and their final reports reviewed: No Studies - Discharge Plan Condition: Stable Disposition: HOME Prescriptions: Amoxicillin/Clavulanate TAB* [Augmentin TAB 500 mg*] 500 mg PO BID #20 tab Phenazopyridine TAB* [Pyridium 100 mg TAB*] 100 mg PO TID #21 tab Patient Education Materials: Urinary Tract Infection in Women (ED) Referrals: Saloni Johnson MD [Primary Care Provider] - Additional Instructions: - stay well hydrated - drink plenty of non-alcoholic, non caffinated beverages - your urine will be further tested - if you require any changes to your treatment, we will contact you - this usually take 2 days - Contact your primary doctor to arrange a follow-up appointment next week. Contact your doctor or return with questions or concerns - Take your antibiotics exactly as prescribed until gone - Take pyridium as prescribed for discomfort. This will make your urine blaze orange - this is normal - Okay to take Tylenol every 6 hours for pain. Take with food - Schedule a follow-up appointment with your doctor this week. If you develop increased confusion, vomiting, fevers, pain or ANY other concerns it is recommended you go to the emergency department for further evaluation and treatment - Billing Disposition and Condition Condition: STABLE Disposition: Home
[2019-02-05] MEDS ORDERED: Amoxicillin/Clavulanate TAB* 875 MG PO ONE (15:51)
== END 2019-02-05 16:20 | disposition home or self-care (01) ==
LOC: UCCORT 15:01
DX: N39.0 Urinary tract infection, site not specified (principal); I10 Essential (primary) hypertension; F03.90 Unspecified dementia, unspecified severity, without behavioral disturbance, psychotic disturbance, mood disturbance, and anxiety; Z88.5 Allergy status to narcotic agent; Z79.891 Long term (current) use of opiate analgesic; Z88.8 Allergy status to other drugs, medicaments and biological substances
CPT/HCPCS: 81003; 87077; 87086; 87186; 99212; A9270-GY; G0463

== ENCOUNTER 2020-01-09 17:52 | Emergency (ER) | payer MEDICARE ==
--- NOTE | 2020-01-09 18:15 | ED ---
Neurological HPI - HPI Summary HPI Summary: 89 y/o female presented to [facility] for mood swings today. Pt became extremely distraught when her daughter left after dinner and has also been paranoid lately , thinking someone will kill her, as well as changes in vision and pain over left eye. No fever, V/D. Pt recently underwent a medication change. Pt has hx of afib and aphasia and is in a memory care unit. - History of Current Complaint Chief Complaint: EDAltMentalStatus Stated Complaint: DEMENTIA EVAL PER EMS Time Seen by Provider: 01/09/20 17:56 Hx Obtained From: Patient Onset/Duration: Still Present Current Severity: None Pain Intensity: 0 Pain Scale Used: 0-10 Numeric Character: Visual Changes, Other: - paranoia, mood swings, pain over left eye - Allergy/Home Medications Allergies/Adverse Reactions: Allergies Allergy/AdvReac Type Severity Reaction Status Date / Time tramadol Allergy Hallucinati Verified 10/04/19 15:19 ons steroids Allergy Unknown Uncoded 10/04/19 15:19 Reaction Details Home Medications: Home Medications Multivitamins/Minerals TAB* [Theragran/minerals TAB*] 0.5 tab PO QAM 08/07/14 [ History Confirmed 02/05/19] Simvastatin TAB(NF) [Zocor(NF)] 5 mg PO DAILY 08/07/14 [History Confirmed ] Acetaminophen TAB* [Tylenol TAB*] 650 mg PO BID 03/10/15 [History Confirmed ] Azelastine 0.05% (OPHTH)(NF) [Optivar 0.05% (NF)] 1 drop BOTH EYES BID 03/10/15 [History Confirmed 02/05/19] Amiodarone TAB* [Cordarone TAB*] 100 mg PO DAILY 08/26/17 [History Confirmed ] Azelastine 0.15% NASAL(NF) [Astepro 0.15% NASAL (NF)] 1 spray BOTH NARES DAILY 08/26/17 [History Confirmed 02/05/19] Cetirizine* [ZyrTEC 10 MG TAB*] 10 mg PO QAM 08/26/17 [History Confirmed ] Rivaroxaban TAB(*) [Xarelto 20 mg] 15 mg PO DAILY 08/26/17 [History Confirmed ] Sertraline HCl [Zoloft] 100 mg PO DAILY 01/23/19 [History Confirmed 02/05/19] Amoxicillin/Clavulanate TAB* [Augmentin TAB 500 mg*] 500 mg PO BID #20 tab 02/05 [Rx] Memantine TAB* [Namenda TAB*] 5 mg PO BID 02/05/19 [History Confirmed 02/05/19] Phenazopyridine TAB* [Pyridium 100 mg TAB*] 100 mg PO TID #21 tab 02/05/19 [Rx] PMH/Surg Hx/FS Hx/Imm Hx Endocrine/Hematology History: Denies: Hx Diabetes Cardiovascular History: Reports: Hx Atrial Fibrillation, Hx Hypertension Denies: Hx Pacemaker/ICD Respiratory History: Reports: Hx Asthma History: Denies: Hx Renal Disease Musculoskeletal History: Reports: Hx Arthritis Sensory History: Reports: Hx Contacts or Glasses, Hx Hearing Aid Opthamlomology History: Reports: Hx Contacts or Glasses Neurological History: Reports: Hx Dementia, Hx Transient Ischemic Attacks (TIA) Psychiatric History: Reports: Hx Anxiety, Hx Depression Denies: Hx Panic Disorder - Surgical History Surgery Procedure, Year, and Place: cataract. colonoscopy, BENIGN LESION REMOVED FROM NECK. sinus surgery Infectious Disease History: No Infectious Disease History: Denies: Traveled Outside the [place] in Last 30 Days - Family History Known Family History: Positive: Cardiac Disease - mother CHF, Other - Cancer father, Non-Contributory - Social History Alcohol Use: Rare Substance Use Type: Reports: None Smoking Status (MU): Former Smoker Type: Cigarettes Review of Systems Negative: Fever Negative: Vomiting, Diarrhea Neurological/Mental Status: Other - pain over left eye, vision changes Positive: Other - paranoid All Other Systems Reviewed And Are Negative: Yes Physical Exam - Summary Physical Exam Summary: Constitutional: Well-developed, Well-nourished, Alert. (-) Distressed Skin: Warm, Dry HENT: Normocephalic; Atraumatic Eyes: Conjunctiva normal Neck: Musculoskeletal ROM normal neck. (-) JVD, (-) Stridor, (-) Tracheal deviation Cardio: Rhythm regular, rate normal, Heart sounds normal; Intact distal pulses; Radial pulses are 2+ and symmetric. (-) Murmur Pulmonary/Chest wall: Effort normal. (-) Respiratory distress, (-) Wheezes, (-) Rales Abd: Soft, (-) tenderness, (-) Distension, (-) Guarding, (-) Rebound Musculoskeletal: (-) Edema, Good pulses bilaterally in radius, No calf tenderness, No venous cords, No pain with dorsiflexion of foot. Lymph: (-) Cervical adenopathy Neuro: Alert, Oriented x3. Full strength in extremities. Expressive aphasia which is baseline. Can state her name and what year it is but has hard time finishing thoughts Psych: Mood and affect Normal Triage Information Reviewed: Yes Vital Signs On Initial Exam: Initial Vitals Temp Pulse Resp BP Pulse Ox 98.9 F 67 16 179/104 96 01/09/20 17:55 01/09/20 17:55 01/09/20 17:55 01/09/20 17:55 01/09/20 17:55 Vital Signs Reviewed: Yes Procedures - Sedation Patient Received Moderate/Deep Sedation with Procedure: No Diagnostics - Vital Signs Vital Signs Temp Pulse Resp BP Pulse Ox 01/09/20 17:55 98.9 F 67 16 179/104 96 - Laboratory Result Diagrams: 01/09/20 18:12 01/09/20 18:12 Lab Statement: Any lab studies that have been ordered have been reviewed, and results considered in the medical decision making process. Course/Dx - Course Course Of Treatment: Patient is here with an episode of agitation tonight. Patient's frontotemporal dementia and expressive aphasia. Patient is at her baseline upon arrival here. Patient had a normal neurologic exam outside of her expressive aphasia. Patient had some blood tests performed to evaluate for underlying cause or worsening symptoms traverse unremarkable. Patient negative UA for UTI. Patient was sent to Dr. Toney pending TSH and vitamin B12 level. Patient will follow up with her primary care doctor tomorrow for medication adjustment - Diagnoses Provider Diagnoses: Dementia Discharge ED - Sign-Out/Discharge Documenting (check all that apply): Sign-Out Patient Signing out patient TO: Andrew Toney - Pt signed out to Dr. Toney at 1900 shift change pending labs. Receiving patient FROM: Renan Galvez - Discharge Plan Condition: Stable Disposition: HOME Patient Education Materials: Dementia (ED) Referrals: Saloni Johnson MD [Primary Care Provider] - Additional Instructions: Please follow up with your primary care doctor tomorrow on your scheduled appointment to discuss medication changes and an action plan for when she becomes agitated Please return if your mother has worsening speech, one-sided weakness, severe chest pain, any other concerning symptoms - Billing Disposition and Condition Condition: STABLE Disposition: Home - Attestation Statements Document Initiated by Delisa: Yes Documenting Scribe: Blue Nguyen Provider For Whom Delisa is Documenting (Include Credential): Renan Galvez MD Scribe Attestation: Blue Chairez, scribed for Renan Galvez MD on 01/09/20 at 1852. Scribe Documentation Reviewed: Yes Provider Attestation: The documentation as recorded by the Blue hooker accurately reflects the service I personally performed and the decisions made by Renan mccauley MD Status of Scribe Document: Viewed
[2020-01-09] MEDS ORDERED: Acetaminophen TAB* 325 MG PO ONE (18:18)
[2020-01-09 18:19] LABS: Urine Appearance Cloudy; Urine Bilirubin Negative (Negative); Urine Blood Negative (Negative); Urine Color Amber; Urine Glucose Negative (Negative); Urine Ketones Negative (Negative); Urine Nitrite Negative (Negative); Urine Protein Negative (Negative); Urine Specific Gravity 1.006 (1.010-1.030); Urine Urobilinogen Negative (Negative)
[2020-01-09 18:25] LABS: ABS Lymphocytes 0.6 10^3/ul (1.0-4.8); ABS Monocytes 0.7 10^3/ul (0-0.8); ABS Neutrophils 4.1 10^3/ul (1.5-7.7); Eosinophil % 0.7 %; Hematocrit 41 % (35-47); Hemoglobin 14.1 g/dL (12.0-16.0); Lymphocyte % 11.4 %; Mean Corpuscular HGB Conc 34 g/dL (31-36); Mean Corpuscular Hemoglobin 34 pg (27-31); Mean Corpuscular Volume 98 fL (80-97); Platelet Count 242 10^3/uL (150-450); Red Blood Count 4.21 10^6 /uL (3.70-4.87); Red Cell Distribution Width 15 % (10-15); White Blood Count 5.5 10^3/uL (3.5-10.8)
[2020-01-09 18:44] LABS: Albumin 4.8 g/dL (3.2-5.2); Albumin/Globulin Ratio 1.9 (1-3); BUN/Creatinine Ratio 14.4 (8-20); Calcium 9.5 mg/dL (8.6-10.3); EGFR African American 60.7 (>60); EGFR Non-African American 50.1 (>60); Globulin 2.5 g/dL (2-4); Total Bilirubin 0.5 mg/dL (0.2-1.0); Total Protein 7.3 g/dL (6.4-8.9)
--- NOTE | 2020-01-09 19:11 | ED ---
Progress - Progress Note Progress Note: The patient is a sign-out from Dr. Renan Galvez MD, to Dr. Andrew Toney MD, at change of shift at 1900 on 01/09/20, pending labs and disposition. Blood work without significant abnormality. Patient is safe for discharge. Course/Dx - Diagnoses Provider Diagnoses: Dementia Discharge ED - Sign-Out/Discharge Documenting (check all that apply): Patient Departure - Patient will be discharged home., Receiving Sign-Out Receiving patient FROM: Renan Galvez - Patient is a sign-out from Dr. Renan Galvez MD, at change of shift at 1900 on 01/09/20, pending labs and disposition. - Discharge Plan Condition: Stable Disposition: HOME Patient Education Materials: Dementia (ED) Referrals: Saloni Johnson MD [Primary Care Provider] - 3 Days Additional Instructions: Please follow up with your primary care doctor tomorrow on your scheduled appointment to discuss medication changes and an action plan for when she becomes agitated Please return if your mother has worsening speech, one-sided weakness, severe chest pain, any other concerning symptoms - Billing Disposition and Condition Condition: STABLE Disposition: Home - Attestation Statements Document Initiated by Alvaibe: Yes Documenting Scribe: Gina Romero Provider For Whom Delisa is Documenting (Include Credential): Dr. Andrew Toney MD Scribe Attestation: Gina Chairez scribed for Dr. Andrew Toney MD on 01/09/20 at 2016. Scribe Documentation Reviewed: Yes Provider Attestation: The documentation as recorded by the Gina hooker accurately reflects the service I personally performed and the decisions made by me, Dr. Andrew Toney MD Status of Scribe Document: Viewed Procedures - Sedation Patient Received Moderate/Deep Sedation with Procedure: No
[2020-01-09 19:23] LABS: TSH (Thyroid Stimulating Horm) 2.26 mcIU/mL (0.34-5.60)
[2020-01-09 19:46] VITALS: BP 170/71
== END 2020-01-09 19:45 | disposition home or self-care (01) ==
LOC: ED 17:52
DX: F03.90 Unspecified dementia, unspecified severity, without behavioral disturbance, psychotic disturbance, mood disturbance, and anxiety (principal); F34.9 Persistent mood [affective] disorder, unspecified; I10 Essential (primary) hypertension; I48.91 Unspecified atrial fibrillation; Z79.01 Long term (current) use of anticoagulants; F41.9 Anxiety disorder, unspecified; F32.9 Major depressive disorder, single episode, unspecified; Z88.5 Allergy status to narcotic agent; Z88.8 Allergy status to other drugs, medicaments and biological substances; Z87.891 Personal history of nicotine dependence
CPT/HCPCS: 36415; 80053; 81003; 82607; 84443; 85025; 99283; A9270-GY

== ENCOUNTER 2021-07-03 19:31 | Inpatient (IN) ==
[2021-07-03 20:26] LABS: ABS Lymphocytes 0.6 10^3/ul (1.0-4.8); ABS Monocytes 0.6 10^3/ul (0-0.8); ABS Neutrophils 4.9 10^3/ul (1.5-7.7); Eosinophil % 0.8 %; Hematocrit 38 % (35-47); Hemoglobin 12.8 g/dL (12.0-16.0); Lymphocyte % 10.2 %; Mean Corpuscular HGB Conc 33 g/dL (31-36); Mean Corpuscular Hemoglobin 34 pg (27-31); Mean Corpuscular Volume 102 fL (80-97); Mean Platelet Volume 6.9 fL (7.4-10.4); Platelet Count 206 10^3/uL (150-450); Red Blood Count 3.75 10^6 /uL (3.70-4.87); Red Cell Distribution Width 14 % (10-15); White Blood Count 6.2 10^3/uL (3.5-10.8)
[2021-07-03 20:46] LABS: Troponin I 0.01 ng/mL (<0.03)
[2021-07-03 20:55] LABS: Albumin 4.1 g/dL (3.2-5.2); Albumin/Globulin Ratio 1.6 (1-3); Calcium 9.1 mg/dL (8.6-10.3); EGFR Non-African American 46.3 (>60); Globulin 2.6 g/dL (2-4); Magnesium 2.1 mg/dL (1.9-2.7); Potassium 4.2 mmol/L (3.5-5.0); Total Bilirubin 0.5 mg/dL (0.2-1.0); Total Protein 6.7 g/dL (6.4-8.9)
[2021-07-03 21:19] LABS: TSH Ultra Thyroid Stim Horm 2.44 mcIU/mL (0.34-5.60)
[2021-07-03] MEDS ORDERED: Ondansetron 4 mg VIAL 2 MG/ML 2 ml VIAL IV PRN (22:23)
[2021-07-03] MEDS ORDERED: hydrALAZINE 20 mg/ml 1 ML Vial IV IV SLOW PU PRN (22:26)
[2021-07-04 03:25] LABS: Urine Appearance Cloudy; Urine Bacteria Absent (Absent); Urine Bilirubin Negative (Negative); Urine Blood Negative (Negative); Urine Color Amber; Urine Glucose Negative (Negative); Urine Ketones Trace (Negative); Urine Nitrite Negative (Negative); Urine Protein Negative (Negative); Urine Red Blood Cell Absent (Absent); Urine Specific Gravity 1.015 (1.002-1.030); Urine Urobilinogen Negative (Negative); Urine White Blood Cell 1+(6-10/hpf) (Absent)
[2021-07-04 03:50] LABS: ABS Lymphocytes 0.7 10^3/ul (1.0-4.8); ABS Monocytes 0.8 10^3/ul (0-0.8); ABS Neutrophils 4.1 10^3/ul (1.5-7.7); Eosinophil % 0.2 %; Hematocrit 36 % (35-47); Lymphocyte % 11.7 %; Mean Corpuscular HGB Conc 34 g/dL (31-36); Mean Corpuscular Hemoglobin 34 pg (27-31); Mean Corpuscular Volume 102 fL (80-97); Mean Platelet Volume 7.3 fL (7.4-10.4); Platelet Count 195 10^3/uL (150-450); Red Blood Count 3.49 10^6 /uL (3.70-4.87); Red Cell Distribution Width 14 % (10-15); White Blood Count 5.6 10^3/uL (3.5-10.8)
[2021-07-04 03:55] LABS: INR 1.32 (0.86-1.15)
[2021-07-04 04:05] LABS: Calcium 8.8 mg/dL (8.6-10.3); EGFR African American 62.4 (>60); EGFR Non-African American 51.6 (>60); Potassium 4.2 mmol/L (3.5-5.0)
[2021-07-04 07:05] LABS: INR 1.2 (0.86-1.15)
[2021-07-04] MEDS ORDERED: CMCS:Simvastatin 10 mg TAB (NF) PO SCH (09:00)
[2021-07-04] MEDS ORDERED: Rivastigmine 1.5 mg CAP (NF) PO SCH (10:00)
[2021-07-04 16:47] VITALS: BP 139/85
[2021-07-04] MEDS ORDERED: RIVASTIGMINE 1.5 MG PO SCH (21:00)
== END 2021-07-04 18:20 | disposition home or self-care (01) | DRG 87 ==
LOC: ED 19:31 → MEDTELE 07-04 01:09 → SUATTDRO 07-04 01:09
PROVIDERS: ADMIT Internal Medicine; ATTEND Internal Medicine